=== PATIENT | male | born 1960 | race Caucasian/White ===

== ENCOUNTER 2025-01-10 16:23 | Emergency (ER) | payer MEDICARE, BC, SELFPAY ==
--- OUTSIDE RECORDS SUMMARY | 2024-12-23 13:00 | XMS_ITS | Encounter Summary ---
Author Organization [facility] Address [address], [place] [address] Care Team Providers Care Broadcast Operations Engineer Name Role Phone Carly Connelly MD Primary Care Provider [phone] Reason for Visit * Reason Comments Follow-up Symptoms Orthostatic drop wit h lightheadedness--wondering when to take meds for itPhlegm-- suggested Mucinex Encounter Details Date Type Department Care Team (Late st Contact Info) Description 12/23/2024 1:00 PM KILN WORKER Office Visit [facility] [address] [place] [id number] Teofilo Ackerman MD [address] [facility] [address] [place] [address] Parkinson's disease, unspecified whether dyskinesia present, unspecified whether manifestations fluctuate (HRC) (Primary Dx); Orthostatic hypotension Social History Tobacco Use Types Packs/Day Years Used Date Smoking Tobacco: Never Alcohol Use Standard Drinks/Week Comments Yes 0 (1 standard drink = 0.6 oz pur e alcohol) Sex and Gender Information Value Date Recorded Sex Assigned at Not on file Legal Sex Male 4:28 AM CDT Gender Identity Not on file Sexual Orientation Not on file documented as of this encounter Last Filed Vital Signs Vital Sign Reading Time Taken Comments Blood Pressure 103/63 12/23/2024 1:05 PM KILN WORKER Pulse 73 12/23/2024 1:05 PM KILN WORKER Temperature - - Respiratory Rate - - Oxygen Saturation - - Inhaled Oxygen Concentration - - Weight 94.8 kg (209 lb) 12/23/2024 1:02 PM KILN WORKER s hoes on Height - - Body Mass Index - - documented in this encounter Patient Instructions * Patient Instructions* Teofilo Ackerman MD - 12/23/2024 1:00 PM KILN WORKER Please contact us using [employer] or by calling the [facility] [place] nurse line at [phone]. Two easy ways to stay connected with what is going on at [facility]: If you have not already done so, we encourage you to sign up (for free) to be on our e-mailing list, so that you will receive information about upcoming classes, events, and activities hosted by [facility]! To sign up, simply send an email to [email or web address] indicating that you would like to be included. 2. [place] for upcoming events, exercise classes, and support groups by visiting [email or web address] or click the link below: [facility] [place] Events - 20 Upcoming Activities and Tickets [employer] Learn more about our ongoing [facility] studies here! [email or web address] Continue same dose and schedule of carbidopa levodopa. Continue to emphasize fluid intake and salt to keep blood pressure higher. Let me know if lightheadedness is getting noticeably worse, it may improve if you are able to stop tamsulosin. Your exam looks very stable today. Follow up with me in six months. Teofilo Ackerman MD WORKER WORKER documented in this encounter Progress Notes * Teofilo Ackerman MD - 12/23/2024 1:00 PM CST Chief complaint: Follow-up History of present illness: 64-year-old man here for neurologic follow-up. Since his last visit with me, he has occasional lightheadedness. He has documented orthostatic hypotension. He remains on tamsulosin but is undergoing a procedure coming up which might allow him to start that medication. He tries to stay well hydrated, also uses salt as needed. Other than that he has not noticed significant changes in regard to the motor symptoms of his Parkinson's disease. He denies motor fluctuations related to the timing of carbidopa levodopa which he takes two pills 3 times per day. He does not have dyskinesia. He has occasional increase in phlegm. Mildly low voice volume. He denies significant constipation. No cognitive difficulties. No swallowing problems. No significant depression or anxiety. Physical exam: Vital signs: Blood pressure 130/70 seated and 103/63 standing. Pulse 57 seated and 73 standing. Weight 209 lb. Neurologic exam was remarkable for mild and intermittent rest tremor of the left hand, minimal to mild bradykinesia left greater than right in the upper and lower extremities. No dyskinesia. Gait exam was remarkable for excellent arm swing, stride length, posture, with mild rest tremor of the left hand. Impression: 64-year-old man with Parkinson's disease well-controlled on carbidopa levodopa. Exam looks stable from previous. He does have continued orthostasis, hopefully this will improve somewhat if he is able to stop tamsulosin. If not and he develops more significant lightheadedness we could con metal hardener pharmacologic therapy such as midodrine or fludrocortisone. He will continue emphasis on physical activity and follow up with me in six months. He will let me know if he would like to combine an upcoming visit with me with speech therapy or any of the other rehab therapists here. He and his will be spending three months this winter in [place]. A total of 33 minutes were spent on the visit, between the visit itself, chart review, documentation. Teofilo Ackerman MD WORKER documented in this encounter Plan of Treatment Upcoming Encounters Date Type Department Care Team (Late st Contact Info) Description 01/13/2025 2:00 PM KILN WORKER Appointment [facility] [address] [place] [id number] Maria Isabel Lerma, FLY FRAME TENDER [address] [place], [place] [phone] 06/27/2025 9:50 AM CDT Appointment Neurology at [place] [id number] [facility] [address] [place] [phone] Teofilo Ackerman MD [address] [facility] [address] [facility] [place] [phone] documented as of this encounter Visit Diagnoses Diagnosis Parkinson's disease, unspecified whether dyskinesia present, unspecified whether manifestations fluctuate (HRC)- Primary Orthostatic hypotension documented in this encounter Care Teams Broadcast Operations Engineer Relationship Specialty Start Date End Date Carly Connelly MD [address] [facility] [address] [place] [phone] PCP - General 05/24/10 documented as of this encounter
--- OUTSIDE RECORDS SUMMARY | 2025-01-10 16:26 | XMS_ITS | Clinical Summary ---
Author Organization [facility] Address [address] [place] [address] Care Team Providers Care Hosiery Mender Name Role Phone No Ref-Primary, Physician Primary Care Provider Social History Tobacco Use Types Packs/Day Years Used Date Smoking Tobacco: Never Assessed Adolescent Education Answer Date Record ed Getting School Help Needed Not on file 11/12 Sex and Gender Information Value Date Recorded Sex Assigned at Not on file Legal Sex Male 2:39 PM CDT Gender Identity Not on file Sexual Orientation Not on file Last Filed Vital Signs Vital Sign Reading Time Taken Comments Blood Pressure 124/74 09/26/2022 10:02 AM CDT Pulse 55 09/26/2022 10:02 AM CDT Temperature - - Respiratory Rate - - Oxygen Saturation 98% 09/26/2022 10:02 AM CDT Inhaled Oxygen Concentration - - Weight - - Height - - Body Mass Index - - Plan of Treatment Health Maintenance Due Date Last Done Comments ADVANCE CARE PLANNING 1960 ANNUAL REVIEW OF HM ORDERS 1958 CT COLONOGRAPHY 1958 DIABETES SCREENING 1958 FIT 1958 FLEX SIG 1958 sDNA (Cologuard) 1958 COLONOSCOPY 1968 COLORECTAL CANCER SCREENING 1968 HEPATITIS C SCREENING 1976 LIPID 1998 PNEUMOCOCCAL VACCINE 50+ YEARS (1 of 1 - PCV) 2008 DTAP/TDAP/TD VACCINE (1 - Tdap) 01/02/2016 01/01/2016, 01/12/2005 FALL RISK ASSESSMENT 05/08/2023 MEDICARE ANNUAL WELLNESS VISIT 08/16/2023 08/15/2022, 06/09/2021 PHQ-2 (once per calendar year) 2024 COVID-19 VACCINE ( season) 2024 10/28/2021, 07/07/2021, 12/16/2020, Additional history exists INFLUENZA VACCINE (#1) 2024 , 11/21/2020, 10/25/2019, Additional history exists RSV VACCINE (1 - 1-dose 75+ series) 2033 ZOSTER VACCINE Completed 07/31/2019, 03/26/2019 HPV VACCINE (No Doses Required) Completed MENINGITIS VACCINE Aged Out No longer eligible based on patient's age to complete this topic Insurance [employer] Care Teams Hosiery Mender Relationship Specialty Start Date End Date No Ref-Primary, Physician PCP - General 09/26/22
--- OUTSIDE RECORDS SUMMARY | 2025-01-10 16:26 | XMS_ITS | Continuity of Care Document ---
Author Organization 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 Plan of Treatment Reminders Order Date Submit Date Provider Last Modified By Organization Details Last Modified Time Details Appointments HOSPITAL 30 2024 08:30A Aidan Vigil MD Not available Not available Not available POST OP 15 2024 09:30A Aidan Vigil MD Not available Not available Not available Lab urinalysi s, dipstick 2024 025 [facility], [address], [place], [address], 01/01/2025 11:00:18 urinalysi s, microscop ic [address] [facility], [address] [facility], [address], [place], [address], 01/01/2025 10:51:22 culture, urine 2024 025 [facility] [place] [facility], [address] [facility], [place], [address], 01/03/2025 11:50:37 Referral None recorded. Procedures None recorded. Surgeries None recorded. Imaging None recorded. Medication Orders None recorded. Patient TargetsNo targets recorded. Patient InstructionsNo instructions recorded. Reason for Referral None Reported. Results Created Date Observation Date Name Description Value Unit Range Abnormal Flag Note LastModifiedBy Organization Detail LastModifiedTime 01/02/2001/01/2025 UA WITHO UT MICRO - CS URISC AN blood - uriscan NEGATI VE negati ve Not Available [facility] [address] [facility] [address], [place], [address], 01/01/2025 11:00:18 01/02/20 25 01/01/2025 UA WITHO UT MICRO - CS URISC AN bilirubin - uriscan NEGATI VE mg/dL negati ve Not Available [facility] [address] [place] [address] 200, [place], [address], 01/01/2025 11:00:18 01/02/2001/01/2025 UA WITHO UT MICRO - CS URISC AN urobilinogen - uriscan NORMAL mg/dL normal Not Available [facility] [address] [place] [address] 200, [place], [address], 01/01/2025 11:00:18 01/02/2001/01/2025 UA WITHO UT MICRO - CS URISC AN ketones - uriscan NEGATI VE mg/dL negati ve Not Available [facility] [address] [place] [address] 200, [place], [address], 01/01/2025 11:00:18 01/02/20 25 01/01/2025 UA WITHO UT MICRO - CS URISC AN protein - uriscan NEGATI VE mg/dL negati ve Not Available [facility] [address] [place] [address] 200, [place], [address], 01/01/2025 11:00:18 01/02/2001/01/2025 UA WITHO UT MICRO - CS URISC AN nitrites - uriscan NEGATI VE negati ve Not Available [facility] [address] [place] [address] [address], [place], [address], 01/01/2025 11:00:18 01/02/20 25 01/01/2025 UA WITHO UT MICRO - CS URISC AN glucose - uriscan NEGATI VE mg/dL negati ve Not Available [facility] [address] [place] [address] 200, [place], [address], 01/01/2025 11:00:18 01/02/2001/01/2025 UA WITHO UT MICRO - CS URISC AN pH - uriscan 7.00 5.00-9 .00 Not Available [facility] [address] [place] [address] 200, [place], [address], 01/01/2025 11:00:18 01/02/2001/01/2025 UA WITHO UT MICRO - CS URISC AN sp. gravity - uriscan <=1.01 1.01-1 .03 Not Available [facility] [address] [place] [address] [address], [place], [address], 01/01/2025 11:00:18 01/02/2001/01/2025 UA WITHO UT MICRO - CS URISC AN leukocytes - uriscan NEGATI VE negati ve Not Available [facility] [address] [place] [address] 200, [place], [address], 01/01/2025 11:00:18 01/02/2001/01/2025 UA WITHO UT MICRO - CS URISC AN color - uriscan LT. YELLOW lt. yellow ;yello w Not Available [facility] [address] [place] [address] 200, [place], [address], 01/01/2025 11:00:18 01/02/2001/01/2025 UA WITHO UT MICRO - CS URISC AN clarity - uriscan CLEAR clear Not Available [facility] [address] [place] [address] 200, [place], [address], 01/01/2025 11:00:18 01/02/2001/01/2025 UA WITHO UT MICRO - CS URISC AN total urine volume (mL) 80 /mL ----- ----- ----- ----- ----- ----- ----- ----- ----- ----- ----- ----- ----- ----- ---- *Plewayne morrow note the follo wing minim um quant ities for addit ional urine testi ng: - Atypi cals: 3 mL - Cytol ogy: 20 mL - GC/CH : 2 mL - FISH: 30 mL - Atypi cals w/ GC/CH : 5 mL - Cytol ogy PLUS FISH: 50 mL - Urine Cultu re: 3 mL ----- ----- ----- ----- ----- ----- ----- ----- ----- ----- ----- ----- ----- ----- ---- This lab resul t is being provi ded to you and your provi ricardo at the [facility] Act. Your provi ricardo may not have had time to revie w and make recom menda tions based on the resul t. Plegabriela e allow up to one week for provi ricardo revie w. Not Available [facility] [address] [facility] [address], [place], [address], 01/01/2025 11:00:18 01/02/20 25 01/01/2025 URINE CULTU RE final report MICROB IOLOGY RESULT S SOURC E Void KNOWN ALLER GIVLADIMIR NKDA TREAT MENT none MEDIA PLATE D AT: Media plate d on 01/01 @ 11:01 AM RESUL T No Growt h This lab resul t is being provi ded to you and your provi ricardo at the [facility] with [facility] Cures Act. Your provi ricardo may not have had time to revie w and make recom menda tions based on the resul t. Pleas e allow up to one week for provi ricardo revie w. Not Available [facility] [address], [place], [address], 01/03/2025 11:50:37 Result Notes None recorded. Problems Name Problem SNOMED Code Status Onset Date Resolution Date Notes Provider Name and Address Organization Details Recorded Time Ureteric stone 74429252 Active 2021 Mark Lewis MD [address] [place] [address],[address], [place], [address], [facility] 2 11:55:18 Parkinson's disease 12143517 Active 2023 Sheri Bingham [facility] 5 13:39:13 Lower urinary tract symptoms due to benign prostatic hypertrophy 2006101308527 1 Active 2024 Mat Vigil MD [address] [place] [address],[address], [place], [address], [facility] 5 14:42:55 Increased frequency of urination 686710447 Active 2024 Mat Vigil MD [address] [place] [address],[address], [place], [address], [facility] 5 14:42:57 Microscopic hematuria 987926710 Active 2024 Mat Vigil MD [address] [place] [address],[address], [place], [address], [facility] 5 14:43:03 Kidney stone 77124543 Active 2024 Mat Vigil MD [address] [place] [address],[address], [place], [address], [facility] 5 16:18:39 Benign prostatic hyperplasia 668626042 Active 2024 Mat Vigil MD [address] [place] [address],[address], [place], [address], [facility] 5 12:57:27 Problem Notes None recorded. Procedures Surgical History Date Name Laterality Status Provider Name and Address Organization Details Recorded Time 01/02/20 25 Urine Culture completed Charo Edmond [facility] 12/30/2024 14:27:17 01/02/20 25 Urinalysis completed Nasrin Xiong [facility] 01/01/2025 10:50:08 12/10/19 25 Cystoscopy- male completed Mat Vigil MD [address] [facility],[address], [place], [address], [facility] 12/09/2024 16:16:59 02/20/19 21 Diagnostic colonoscopy completed Not Available Health Note 11/28/2024 21:31:42 Fragmenting of kidney stone completed Not Available Health Note 11/28/2024 21:31:42 Imaging Results None recorded. Procedure Notes None recorded. Medical Equipment None Reported. Allergies No known drug allergies Medications Name Sig Start Date Stop Date Status Note LastModified by Organization Details LastModified Time carbidopa ER 25 mg-levodo pa 100 mg tablet,ex tended release 25mg/100 mg 3/day active Not Available Not Available No t Available sulfameth oxazole 800 mg-trimet hoprim 160 mg tablet TAKE ONE TABLET BY MOUTH FOR PROCEDUR E 12/09 completed Not Available Not Available Not Available ketorolac 10 mg tablet TAKE ONE TABLET BY MOUTH EVERY 6-8 HOURS NEEDED FOR 7 DAYS. active Not Available Not Available No t Available oxycodone -acetamin ophen 5 mg-325 mg tablet TAKE ONE TABLET BY MOUTH EVERY 4 HOURS NEEDED 12/02 completed HN: Patient reports no longer taking Not Available Not Available Not Available tamsulosi n 0.4 mg capsule TAKE ONE CAPSULE BY MOUTH EVERY DAY AFTER A MEAL active Not Available Not Available No t Available ibuprofen 200 mg tablet Take 1 tablet every 6 hours by oral route. 12/02 completed HN: Patient reports no longer taking Not Available Not Available Not Available oxybutyni n chloride ER 5 mg tablet,ex tended release 24 hr TAKE ONE TABLET BY MOUTH EVERY DAY NEEDED FOR 30 DAYS. active Not Available Not Available No t Available methylpre dnisolone 4 mg tablets in a dose pack TAKE BY MOUTH DIRECTED ON PACKAGE. active Not Available Not Available No t Available colchicin e 0.6 mg tablet TAKE ONE TABLET BY MOUTH TWICE A DAY NEEDED FOR GOUT PAIN active Not Available Not Available No t Available pregabali n 25 mg capsule TAKE ONE CAPSULE BY MOUTH AT BEDTIME active Not Available Not Available No t Available Vitals None Recorded Social History Question Answer Notes LastModified by Clariture ion Details LastModified Time Tobacco Smoking Status Former Smoker Not Available Health Note 11/28/2024 21:31:42 Do You Have An Advance Directive? No [email or web address] Information not available 11/28/2024 What Is Your Level Of Caffeine Consumption? Moderate [email or web address] Information not available 11/28/2024 How Much Tobacco Do You Chew? 1/day [email or web address] Information not available 11/28/2024 When Did You Quit Smoking? 16+yearssince lastcigarette [email or web address] Information not available 12/02/2024 Ethnicity Not /Lati no [email or web address] Information not available 12/02/2024 Preferred Language Kiswahili [email or web address] Information not available 12/02/2024 Recreational Drug Use No [email or web address] Information not available 12/02/2024 Do You Have A Medical Power Of Electrotype Caster? Yes [email or web address] Information not available 11/28/2024 What Was The Date Of Your Most Recent Tobacco Screening? 12/09/2024 [email or web address] Information not available 12/05/2024 What Is Your Relationship Status? [email or web address] Information not available 11/28/2024 Are You Sexually Active? Yes [email or web address] Information not available 11/28/2024 How Many Years Have You Smoked Tobacco? 3 [email or web address] Information not available 11/28/2024 How Many Days In The Past Year Have You Consumed 5 Or More Drinks? 5 [email or web address] Information no t available 11/28/2024 Sex: Unknown Functional Status Question Answer Note LastModified by [employer] ion Details LastModified Time Do you use any illicit or recreational drugs? Yes [email or web address] Information not available 11/28/2024 Do you or have you ever used any other forms of tobacco or nicotine? No [email or web address] Information not available 03/11/2021 What is your level of alcohol consumption? Occasional [email or web address] Information not available 11/28/2024 Do you or have you ever used smokeless tobacco? Never used smokeless tobacco [email or web address] Information not available 11/28/2024 Do you or have you ever used e-cigarettes or vape? Never used electronic cigarettes [email or web address] Information not available 11/28/2024 Mental Status None recorded. Family History Nothing Reported. Medical History Condition Response Sexually Transmitted Infection N Diabetes N Bleeding Disorder N High Blood Pressure N Kidney Stones Y Cancer N Depression N Lung Disease N High Cholesterol Y GERD/Acid Reflux N Heart Disease N Immunizations Vaccine Type Date Status Note Provider Nam e and Address Organization Details Recorded Time SARS-COV-2 (COVID-19) vaccine, UNSPECIFIED 3 completed Not Available Health Note 11/28/2024 21:31:44 zoster live 0 completed Not Available Health Note 11/28/2024 21:31:44 influenza, unspecified formulation 3 completed Not Available Health Note 11/28/2024 21:31:44 Influenza, split virus, trivalent, preservative 6 completed Not Available [facility] 01/01/2025 11:19:38 Hep A, ped/adol, 2 dose 8 completed Not Available [facility] 01/01/2025 11:19:38 Hep B, adult 8 completed Not Available [facility] 01/01/2025 11:19:38 Td (adult), 2 Lf tetanus toxoid, preservative free, adsorbed 5 completed Not Available [facility] 01/01/2025 11:19:38 Hep A, adult 8 completed Not Available [facility] 01/01/2025 11:19:38 Hep B, adult 8 completed Not Available [facility] 01/01/2025 11:19:38 Hep B, adult 8 completed Not Available [facility] 01/01/2025 11:19:38 Influenza, split virus, trivalent, preservative 8 completed Not Available [facility] 01/01/2025 11:19:38 Influenza, split virus, trivalent, preservative 9 completed Not Available [facility] 01/01/2025 11:19:38 influenza, unspecified formulation 0 completed Not Available [facility] 01/01/2025 11:19:38 Influenza, split virus, trivalent, preservative 1 completed Not Available [facility] 01/01/2025 11:19:38 Influenza, split virus, trivalent, preservative 2 completed Not Available [facility] 01/01/2025 11:19:38 Influenza, split virus, trivalent, preservative 2 completed Not Available [facility] 01/01/2025 11:19:38 measles 7 completed Not Available [facility] 01/01/2025 11:19:38 Influenza, split virus, trivalent, preservative 3 completed Not Available [facility] 01/01/2025 11:19:38 influenza, unspecified formulation 4 completed Not Available [facility] 01/01/2025 11:19:38 Influenza, split virus, quadrivalent, PF 6 completed Not Available [facility] 01/01/2025 11:19:38 Td (adult), 2 Lf tetanus toxoid, preservative free, adsorbed 6 completed Not Available [facility] 01/01/2025 11:19:38 Influenza, MDCK, quadrivalent, PF 7 completed Not Available [facility] 01/01/2025 11:19:38 Influenza, split virus, quadrivalent, PF 8 completed Not Available [facility] 01/01/2025 11:19:38 Influenza, split virus, quadrivalent, PF 9 completed Not Available [facility] 01/01/2025 11:19:38 zoster recombinant 0 completed Not Available [facility] 01/01/2025 11:19:38 zoster recombinant 0 completed Not Available [facility] 01/01/2025 11:19:38 Influenza, split virus, quadrivalent, PF 0 completed Not Available [facility] 01/01/2025 11:19:38 COVID-19, mRNA, LNP-S, PF, 30 mcg/0.3 mL dose 1 completed Not Available [facility] 01/[facility] 11:19:38 COVID-19, mRNA, LNP-S, PF, 30 mcg/0.3 mL dose 1 completed Not Available [facility] 01/01/2025 11:19:38 Influenza, split virus, quadrivalent, PF 1 completed Not Available [facility] 01/01/2025 11:19:38 COVID-19, mRNA, LNP-S, PF, 30 mcg/0.3 mL dose 1 completed Not Available [facility] 01/01/2025 11:19:38 COVID-19, mRNA, LNP-S, PF, 100 mcg/0.5mL dose or 50 mcg/0.25mL dose 2 completed Not Available [facility] 01/01/2025 11:19:38 COVID-19, mRNA, LNP-S, bivalent, PF, 30 mcg/0.3 mL dose 2 completed Not Available [facility] 01/01/2025 11:19:38 Influenza, MDCK, quadrivalent, PF 2 completed Not Available [facility] 01/01/2025 11:19:38 Influenza, split virus, quadrivalent, PF 3 completed Not Available [facility] 01/01/2025 11:19:38 COVID-19, mRNA, LNP-S, PF, vick-sucrose, 30 mcg/0.3 mL 4 completed Not Available [facility] 01/01/2025 11:19:38 Pneumococcal conjugate PCV20, polysaccharide [id number] conjugate, adjuvant, PF 4 completed Not Available [facility] 01/01/2025 11:19:38 COVID-19, mRNA, LNP-S, PF, vick-sucrose, 30 mcg/0.3 mL 4 completed Not Available [facility] 01/01/2025 11:19:38 Influenza, adjuvanted, trivalent, PF 4 completed Not Available [facility] 01/01/2025 11:19:38 Influenza, adjuvanted, trivalent, PF 5 completed Not Available [facility] 01/01/2025 11:19:38 COVID-19, mRNA, LNP-S, PF, 50 mcg/0.5 mL 5 completed Not Available [facility] 01/01/2025 11:19:38 Past Encounters Encounter ID Performer Location Encounter Start Date Encounter Closed Date Diagnosis/Indication Diagnosis SNOMED-CT Code Diagnosis ICD10 Code Diagnosis IMO Codes Diagnosis Note [id number] MD Xiomy Pate an [address] [facility],[address] [place] [id number] 12/02/2024 13:56:34 12/02/2024 14:48:25 Lower urinary tract symptoms due to benign prostatic hypertrophy 9391438185 9101 N40.1 79079267 - bothered by his frequency and urgency q1h- likely related to chronic BPH +/ - constipati on- on flomax, tolerating w/o s/e- offered finasterid e, not interested - will eval his bladder and prostate on cysto, may be good urolift candidate- advised to minimize constipati on Microscopic hematuria 19 7578242 R31.29 623323 We discussed the current guidelines as outlined by the [place] regarding the evaluation of patients at risk for urothelial cell carcinoma. Given they are high risk, it is recommende d that they proceed with local cystoscopy and contrast enhanced triphasic upper tract imaging.-R TC for cysto Kidney stone 13227154 N2 0.0 15512 - ~1.1cm of left side non obstructin g stones- plan for surveillan ce- check KUB + US in 12mo [id number] MD Xiomy Pate an [address] [facility],[address] [place] [id number] 12/09/2024 14:50:16 12/09/2024 16:23:05 Lower urinary tract symptoms due to benign prostatic hypertrophy 1938320006 9101 N40.1 [id number] - cysto today with bilateral obstructin g lobes, no intravesic al componentI had a long discussion with the patient regarding his symptom severity and his findings from both his imaging and cystoscopy . We first discussed medical therapy with alpha-bloc fransico with or without the addition of finasterid e 5 mg daily. We discussed expectatio ns in terms of symptom improvemen t with combinatio n medical therapy. We then discussed minimally invasive procedures done in the office under local anesthesia or monitored anesthesia care in the operating room, notably the Rezum, Urolift, iTind, and Optilume for BPH.We discussed the technical aspects of each of these procedures , risks, anticipate d improvemen ts in voiding dysfunctio n, and the very low risk of impacts on sexual function. We then touched on the role of prostate artery embolizati on. We discussed the technical aspects of this, existing outcomes data, and risks. We discussed that if he is interested in this I would referred [facility] for considerat ion and he would return after treatment for reassessme nt. We then discussed surgical outlet procedures done under anesthesia including bi-polar transureth ral resection of prostate, aqua ablation, robotic assisted and open simple prostatect petra. We then discussed the associated risks of each procedures , anticipate d symptom improvemen t, surgical retreatmen t rate, and impacts on sexual function. hes a good candidate for urolift. will scheduleI also had long discussion of role his parkinsons may be playing. i think he needs outlet procedure but likely ongoing therapy for OAB / NDO. with urolift less concern with botox in the future Microscopic hematuria 19 7490589 R31.29 410050 -CTU showing few small stones, will survel-cys to negative for bladder cause Kidney stone 89012862 N2 0.0 45090 - ~1.1cm of left side non obstructin g stones- plan for surveillan ce- check KUB + US in 12mo [id number] Mat Vigil MD [facility] [address] [facility] [address] [place] [address] 01/01/2025 10:21:39 01/01/2025 10:53:22 Lower urinary tract symptoms due to benign prostatic hypertrophy 6858455564 9101 N40.1 86510181 Health Concerns Section Related Observation LastModified by Organization Detai ls LastModified Time None Recorded Concern Status LastModified by Organization Details LastModified Time None Recorded Payers Encounter Date Sequence Insurance Name Policy Number Policy Ivy Covered Member ID Ivy Member ID Guarantor Name 01/01/2025 1 [employer] [employer] [place] MEDICARE COST [id number] Mat Ureña [id number] Mat Ureña
--- OUTSIDE RECORDS SUMMARY | 2025-01-10 16:26 | XMS_ITS | Data Portability ---
Author Organization [facility], [facility] Address [address] [place] [address] Care Team Providers Care Gymnastics Coach Or Instructor Name Role Phone ELSY NORWOOD Primary Care Provider [phone] Assessment Encounter Date Assessment Date Assessment LastModified by Organization Details LastModified Time 12/02/2024 12/02/2024 64yo m here for evaluation of multiple urologic issues [email or web address] Not available 12/02/2024 14:42:52 12/09/2024 12/09/2024 64yo m with luts , microhematuria [email or web address] Not available 12/09/2024 16:18:49 Plan of Treatment Reminders Order Date Submit Date Provider Last Modified By Organization Details Last Modified Time Details Appointments HOSPITAL 30 2024 08:30A M Sapna Vigil MD Not available Not available Not available POST OP 15 2024 09:30A M Sapna Vigil MD Not available Not available Not available Lab urinalysi s, dipstick 2024 025 [facility], [address], [address], [place], [address], 01/01/2025 11:00:18 urinalysi s, microscop ic 2024 025 [facility], [address], [address], [place], [address], 01/01/2025 10:51:22 culture, urine 2024 025 [facility], [address], [address], [place], [address], 01/03/2025 11:50:37 Referral None recorded. Procedures None recorded. Surgeries cystouret hroscopy, with insertion of permanent adjustabl e transpros tatic implant; single implant (SURG) 2024 025 [email or web address] [id number] [facility], [address], [address], [place], [address], 12/20/2024 09:58:13 cystoscop y, with ureterosc opy, with lithotrip sy, with insertion of ureteral stent (SURG) 2021 022 [email or web address] [id number] [facility], [address], [address], [place], [address], 03/29/2021 15:42:32 Imaging None recorded. Medication Orders Bactrim DS 800 mg-160 mg tablet 2024 025 [facility], [place], [place], [address] [place], [address], 01/08/2025 12:55:43 Patient TargetsNo targets recorded. Patient InstructionsNo instructions recorded. Reason for Referral None Reported. Results Created Date Observation Date Name Description Value Unit Range Abnormal Flag Note LastModifiedBy Organization Detail LastModifiedTime 03/16/19 22 03/19/2021 STONE SWETHA SIS source Commen t Right Urete r Not Available [facility] ([facility]) [address], [place], [address], 03/19/2021 19:07:45 03/16/19 22 03/19/2021 STONE SWETHA SIS color Brown Not Available [facility] ([facility]) [address], [place], [address], 03/19/2021 19:07:45 03/16/19 22 03/19/2021 STONE SWETHA SIS size 2x2 mm Singl e piece recei julian. Not Available [facility] ([facility]) [address] [place], [address], 03/19/2021 19:07:45 03/16/19 22 03/19/2021 STONE SWETHA SIS weight 15 mg Not Available [facility] ([facility]) [address] [place], [address], 03/19/2021 19:07:45 03/16/19 22 03/19/2021 STONE SWETHA SIS composition Commen t Perce ntage (Repr esent s the % compo sitio n) Not Available [facility] ([facility]) [address] [place], [address], 03/19/2021 19:07:45 03/16/19 22 03/19/2021 STONE SWETHA SIS calcium oxalate monohydrate 65 % Not Available [facility]) [address] [place], [address], 03/19/2021 19:07:45 03/16/19 22 03/19/2021 STONE SWETHA SIS calcium oxalate dihydrate 30 % Not Available [facility] ([facility]) [address] [place], [address], 03/19/2021 19:07:45 03/16/19 22 03/19/2021 STONE SWETHA SIS hydroxyapati te 5 % Not Available [facility] ([facility]) [address] [place], [address], 03/19/2021 19:07:45 03/16/19 22 03/19/2021 STONE SWETHA SIS carbonate apatite EDUCATION AND OUTREACH COORDINATOR Not Available [facility] ([facility]) [address] [place], [address], 03/19/2021 19:07:45 03/16/19 22 03/19/2021 STONE SWETHA SIS cahpo4 (brushite) EDUCATION AND OUTREACH COORDINATOR Not Available [facility]) [address], [place], [address], 03/19/2021 19:07:45 03/16/19 22 03/19/2021 STONE SWETHA SIS calcium phosphate EDUCATION AND OUTREACH COORDINATOR Not Available [facility] ([facility]) [address], [place], [address], 03/19/2021 19:07:45 03/16/19 22 03/19/2021 STONE SWETHA SIS calcium carbonate EDUCATION AND OUTREACH COORDINATOR Not Available [facility] ([facility]) [address], [place], [address], 03/19/2021 19:07:45 03/16/19 22 03/19/2021 STONE SWETHA SIS mg nh4 PO4 (struvite) EDUCATION AND OUTREACH COORDINATOR Not Available [facility]) [address] [place], [address], 03/19/2021 19:07:45 03/16/19 22 03/19/2021 STONE SWETHA SIS mghpo4 (newberyite) EDUCATION AND OUTREACH COORDINATOR Not Available [facility] ([facility]) [address] [place], [address], 03/19/2021 19:07:45 03/16/19 22 03/19/2021 STONE SWETHA SIS uric acid EDUCATION AND OUTREACH COORDINATOR Not Available [facility] ([facility]) [address] [place], [address], 03/19/2021 19:07:45 03/16/19 22 03/19/2021 STONE SWETHA SIS uric acid dihydrate EDUCATION AND OUTREACH COORDINATOR Not Available [facility] ([facility]) [address] [place], [address], 03/19/2021 19:07:45 03/16/19 22 03/19/2021 STONE SWETHA SIS ammonium acid urate EDUCATION AND OUTREACH COORDINATOR Not Available [facility]) [address] [place], [address], 03/19/2021 19:07:45 03/16/19 22 03/19/2021 STONE SWETHA SIS sodium acid urate EDUCATION AND OUTREACH COORDINATOR Not Available [facility] ([facility]) [address] [place], [address], 03/19/2021 19:07:45 03/16/19 22 03/19/2021 STONE SWETHA SIS 2,8 dihydroxyade nine EDUCATION AND OUTREACH COORDINATOR Not Available [facility] ([facility]) [address] [place], [address], 03/19/2021 19:07:45 03/16/19 22 03/19/2021 STONE SWETHA SIS xanthine EDUCATION AND OUTREACH COORDINATOR Not Available [facility] ([facility]) [address] [place], [address], 03/19/2021 19:07:45 03/16/19 22 03/19/2021 STONE SWETHA SIS cystine EDUCATION AND OUTREACH COORDINATOR Not Available [facility] ([facility]) [address] [place], [address], 03/19/2021 19:07:45 03/16/19 22 03/19/2021 STONE SWETHA SIS cholesterol EDUCATION AND OUTREACH COORDINATOR Not Available [facility] ([facility]) [address] [place], [address], 03/19/2021 19:07:45 03/16/19 22 03/19/2021 STONE SWETHA SIS calcium bilirubinate EDUCATION AND OUTREACH COORDINATOR Not Available [facility] ([facility]) [address] [place], [address], 03/19/2021 19:07:45 03/16/19 22 03/19/2021 STONE SWETHA SIS bilirubin EDUCATION AND OUTREACH COORDINATOR Not Available [facility] ([facility]) [address] [place], [address], 03/19/2021 19:07:45 03/16/19 22 03/19/2021 STONE SWETHA SIS calcium palmitate EDUCATION AND OUTREACH COORDINATOR Not Available [facility] ([facility]) [address] [place], [address], 03/19/2021 19:07:45 03/16/19 22 03/19/2021 STONE SWETHA SIS calcium stearate EDUCATION AND OUTREACH COORDINATOR Not Available [facility] ([facility]) [address], [place], [address], 03/19/2021 19:07:45 03/16/19 22 03/19/2021 STONE SWETHA SIS triamterene EDUCATION AND OUTREACH COORDINATOR Not Available [facility] ([facility]) [address], [place], [address], 03/19/2021 19:07:45 03/16/19 22 03/19/2021 STONE SWETHA SIS drug or metabolite EDUCATION AND OUTREACH COORDINATOR Not Available [facility] ([facility]) [address], [place], [address], 03/19/2021 19:07:45 03/16/19 22 03/19/2021 STONE SWETHA SIS dried blood EDUCATION AND OUTREACH COORDINATOR Not Available [facility] ([facility]) [address], [place], [address], 03/19/2021 19:07:45 03/16/19 22 03/19/2021 STONE SWETHA SIS cellular material EDUCATION AND OUTREACH COORDINATOR Not Available [facility] ([facility]) [address], [place], [address], 03/19/2021 19:07:45 03/16/19 22 03/19/2021 STONE SWETHA SIS other component(s) EDUCATION AND OUTREACH COORDINATOR Not Available [facility] ([facility]) [address], [place], [address], 03/19/2021 19:07:45 03/16/19 22 03/19/2021 STONE SWETHA SIS comment EDUCATION AND OUTREACH COORDINATOR Not Available [facility] ([facility]) [address] [place], [address], 03/19/2021 19:07:45 03/16/19 22 03/19/2021 STONE SWETHA SIS comment EDUCATION AND OUTREACH COORDINATOR Not Available [facility] ([facility]) [address], [place], [address], 03/19/2021 19:07:45 03/16/19 22 03/19/2021 STONE SWETHA SIS photo Commcarlos t Photo graph will follo w under a separ ate cover Not Available [facility] ([facility]) [address], [place], [address], 03/19/2021 19:07:45 03/16/19 22 03/19/2021 STONE SWETHA SIS comment: Commen t Physi yana quest ions regar ding Calcu li Swetha sis conta ct [facility] at: [phone]. Not Available [facility] ([facility]) [address], [place], [address], 03/19/2021 19:07:45 03/16/19 22 03/19/2021 STONE SWETHA SIS please note: Yonathan t Calcu li repor t will follo w via compu ter, mail or couri kitty fitzpatrick. Not Available [facility] ([facility]) [address], [place], [address], 03/19/2021 19:07:45 03/16/19 22 03/19/2021 STONE SWETHA SIS disclaimer: Yonathan patel This test was devel oped and its perfo rmanc e shantelle cteri stics deter mined by [employer]. It has not been clear ed or appro julian by the Food and Drug Admin istra tion. Not Available [facility] ([facility]) [address], [place], [address], 03/19/2021 19:07:45 03/16/1903/19/2021 STONE SWETHA SIS pdf . Not Available [facility] ([facility]) [address], [place], [address], 03/19/2021 19:07:45 03/16/19 22 03/16/2021 STONE SWETHA SIS-L C source Commen t Right Urete r Not Available [facility] [address] [place] [address], [place], [address], 03/22/2021 08:09:09 03/16/19 22 03/16/2021 STONE SWETHA SIS-L C color Brown Not Available [facility] [address] [place] [address], [place], [address], 03/22/2021 08:09:09 03/16/19 22 03/16/2021 STONE SWETHA SIS-L C size 2x2 mm Singl e piece recei julian. Not Available [facility] [address] [place] [address], [place], [address], 03/22/2021 08:09:09 03/16/19 22 03/16/2021 STONE SWETHA SIS-L C weight 15 mg Not Available [facility] [address] [place] [address], [place], [address], 03/22/2021 08:09:09 03/16/19 22 03/16/2021 STONE SWETHA SIS-L C composition Commen t Perce ntage (Repr esent s the % compo sitio n) Not Available [facility] [address] [place] [address], [place], [address], 03/22/2021 08:09:09 03/16/19 22 03/16/2021 STONE SWETHA SIS-L C calcium oxalate monohydrate 65 % Not Available [facility] [address] [place] [address], [place], [address], 03/22/2021 08:09:09 03/16/19 22 03/16/2021 STONE SWETHA SIS-L C calcium oxalate dihydrate 30 % Not Available [facility] [address] [place] [address] [address], [place], [address], 03/22/2021 08:09:09 03/16/19 22 03/16/2021 STONE SWETHA SIS-L C hydroxyapati te 5 % Not Available [facility] [address], [place], [address], 03/22/2021 08:09:09 03/16/19 22 03/16/2021 STONE SWETHA SIS-L C photo Yonathan patel Photo graph will follo w under a separ ate cover Not Available [facility] [address] [place] [address] [address], [place], [address], 03/22/2021 08:09:09 03/16/19 22 03/16/2021 STONE SWETHA SIS-L C comment: Yonathan patel Physi yana quest ions regar ding Calcu li Swetha sis conta ct [facility] at: [phone]. Not Available [facility] [address] [place] [address] [address], [place], [address], 03/22/2021 08:09:09 03/16/19 22 03/16/2021 STONE SWETHA SIS-L C please note: Yonathan patel Calcu li repor t will follo w via compu ter, mail or couri er barbara fitzpatrick. Not Available [facility] [address] [place] [address] [address], [place], [address], 03/22/2021 08:09:09 03/16/19 22 03/16/2021 STONE SWETHA SIS-L C disclaimer: Yonathan patel This test was devel alexsandered and its perfo rmanc e shantelle cteri stics deter mined by [facility]. It has not been clear ed or appro julian by the Food and Drug Admin istra tion. Not Available [facility] [address] [place] [address] [address], [place], [address], 03/22/2021 08:09:09 03/16/19 22 03/16/2021 STONE SWETHA SIS-L C pdf . Not Available [facility] [address] [place] [address] [address], [place], [address], 03/22/2021 08:09:09 01/02/202025 UA WITHO UT MICRO - CS URISC AN blood - uriscan NEGATI VE negati ve Not Available [facility] [address] [place] [address] [address], [place], [address], 01/01/2025 11:00:18 01/02/20 25 01/01/2025 UA WITHO UT MICRO - CS URISC AN bilirubin - uriscan NEGATI VE mg/dL negati ve Not Available [facility] [address] [place] [address] [address], [place], [address], 01/01/2025 11:00:18 01/02/2001/01/2025 UA WITHO UT MICRO - CS URISC AN urobilinogen - uriscan NORMAL mg/dL normal Not Available [facility] [address] [place] [address] [address], [place], [address], 01/01/2025 11:00:18 01/02/2001/01/2025 UA WITHO UT MICRO - CS URISC AN ketones - uriscan NEGATI VE mg/dL negati ve Not Available [facility] [address] [place] [address] [address], [place], [address], 01/01/2025 11:00:18 01/02/20 25 01/01/2025 UA WITHO UT MICRO - CS URISC AN protein - uriscan NEGATI VE mg/dL negati ve Not Available [facility] [address] [place] [address] [address], [place], [address], 01/01/2025 11:00:18 01/02/20 25 01/01/2025 UA WITHO UT MICRO - CS URISC AN nitrites - uriscan NEGATI VE negati ve Not Available [facility] [address] [place] [address] [address], [place], [address], 01/01/2025 11:00:18 01/02/20 25 01/01/2025 UA WITHO UT MICRO - CS URISC AN glucose - uriscan NEGATI VE mg/dL negati ve Not Available [facility] [address] [place] [address] [address], [place], [address], 01/01/2025 11:00:18 01/02/2001/01/2025 UA WITHO UT MICRO - CS URISC AN pH - uriscan 7.00 5.00-9 .00 Not Available [facility] [address] [place] [address] [address], [place], [address], 01/01/2025 11:00:18 01/02/2001/01/2025 UA WITHO UT MICRO - CS URISC AN sp. gravity - uriscan <=1.01 1.01-1 .03 Not Available [facility] [address] [place] [address] [address], [place], [address], 01/01/2025 11:00:18 01/02/2001/01/2025 UA WITHO UT MICRO - CS URISC AN leukocytes - uriscan NEGATI VE negati ve Not Available [facility] [address] [place] [address] [address], [place], [address], 01/01/2025 11:00:18 01/02/2001/01/2025 UA WITHO UT MICRO - CS URISC AN color - uriscan LT. YELLOW lt. yellow ;yello w Not Available [facility] [address] [place] [address] [address], [place], [address], 01/01/2025 11:00:18 01/02/2001/01/2025 UA WITHO UT MICRO - CS URISC AN clarity - uriscan CLEAR clear Not Available [facility] [address] [place] [address] [address], [place], [address], 01/01/2025 11:00:18 01/02/2001/01/2025 UA WITHO UT MICRO - CS URISC AN total urine volume (mL) 80 /mL ----- ----- ----- ----- ----- ----- ----- ----- ----- ----- ----- ----- ----- ----- ---- *Max morrow note the follo wing minim um [...] ricardo at the same time in compl iance with the Centu ry Cures Act. Your provi ricardo may not have had time to revie w and make recom menda tions based on the resul t. Pleas e allow up to one week for provi ricardo revie w. Not Available [facility] [address], [place], [address], 01/01/2025 11:00:18 01/02/20 25 01/01/2025 URINE CULTU RE final report [facility] RES[facility] SOURC E Void KNOWN ALLER GIES NKDA TREAT MENT none MEDIA PLATE D AT: Media plate d on 01/01 @ 11:01 AM RESUL T No Growt h This lab resul t is being provi ded to you and your provi ricardo at the same time in compl iance with the Centu ry Cures Act. Your provi ricardo may not have had time to revie w and make recom menda tions based on the resul t. Pleas e allow up to one week for provi ricardo revie w. Not Available [facility] [address], [place], [address], 01/03/2025 11:50:37 03/11/19 22 03/08/2021 imagi ng/di agnos tic resul t No observ ation record ed. [email or web address] Not Available 2021 11:10:38 Result Notes None recorded. Problems Name Problem SNOMED Code Status Onset Date Resolution Date Notes Provider Name and Address Organization Details Recorded Time Ureteric stone 00658330 Active 2021 Mark Lewis MD [address] [place] [address],[address], [place], [address], [facility] 2 11:55:18 Parkinson's disease 66578017 Active 2023 Sheri Bingham [facility] 5 13:39:13 Lower urinary tract symptoms due to benign prostatic hypertrophy 7214053925481 1 Active 2024 Sapna Vigil MD [address] [place] [address],[address], [place], [address], [facility] 5 14:42:55 Increased frequency of urination 037074983 Active 2024 Sapna Vigil MD [address] [place] [address],[address], [place], [address], [facility] 5 14:42:57 Microscopic hematuria 319446373 Active 2024 Sapna Vigil MD [address] [place] [address],[address], [place], [address], [facility] 5 14:43:03 Kidney stone 26961386 Active 2024 Sapna Vigil MD [address] [place] [address],[address], [place], [address], [facility] 5 16:18:39 Benign prostatic hyperplasia 386321428 Active 2024 Sapna Vigil MD [address] [place] [address],[address], [place], [address], [facility] 5 12:57:27 Problem Notes None recorded. Procedures Surgical History Date Name Laterality Status Provider Name and Address Organization Details Recorded Time 01/02/20 25 Urine Culture completed Charo Edmond [facility] 12/30/2024 14:27:17 01/02/20 25 Urinalysis completed Nasrin Xiong [facility] 01/01/2025 10:50:08 12/10/19 25 Cystoscopy- male completed Sapna Vigil MD [address], [place], [address], [facility] 12/09/2024 16:16:59 02/20/19 21 Diagnostic [...] Available Not Available No t Available Vitals Date Recorded Body height Body mass index (BMI) Body weight Provider Name and Address Organization Details Last Updated DateTime 03/11/2021 182.88 cm 27.8 kg/m2 74438.44 g Paul Lazo [facility] 03/11/2021 16:49:26 Date Recorded Body mass index (BMI) Body weight Body height Provider Name and Address Organization Details Last Updated DateTime 12/02/2024 27.8 kg/m2 60651.05697 10210 g 182.88 cm Not Available Health Note 12/02/2024 13:56:51 Date Recorded Body height Body mass index (BMI) Body weight Provider Name and Address Organization Details Last Updated DateTime 12/09/2024 182.88 cm 27.8 kg/m2 70965.5464 192988 g Not Available Health Note 12/09/2024 14:50:38 Social History Question Answer Notes LastModified by Organizat ion Details LastModified Time Tobacco Smoking Status Former Smoker Not Available Health Note 11/28/2024 21:31:42 Do You Have An Advance Directive? No [email or web address] Information not available 11/28/2024 What Is Your Level Of Caffeine Consumption? Moderate [email or web address] Information not available 11/28/2024 How Much Tobacco Do You Chew? 1/day [email or web address] Information not available 11/28/2024 When Did You Quit Smoking? 16+yearssince lastcigarette [email or web address] Information not available 12/02/2024 Ethnicity Not /Lati no [email or web address] Information not available 12/02/2024 Preferred Language Ivorian [email or web address] Information not available 12/02/2024 Recreational Drug Use No [email or web address] Information not available 12/02/2024 Do You Have A Medical Power Of Pediatric Audiologist? Yes [email or web address] Information not available 11/28/2024 What Was The Date Of Your Most Recent Tobacco Screening? 12/09/2024 [email or web address] Information not available 12/05/2024 What Is Your [...] Functional Status Question Answer Note LastModified by Organizat ion Details LastModified Time Do you use [...] virus, trivalent, preservative 6 completed Not Available [facility] 01/01/2025 11:19:38 Hep A, ped/adol, 2 dose 8 completed Not Available [facility] 01/01/2025 11:19:38 Hep B, adult 8 completed Not Available [facility] 01/01/2025 11:19:38 Td (adult), 2 Lf tetanus toxoid, preservative free, adsorbed 5 completed Not Available [facility] 01/01/2025 11:19:38 Hep A, adult 8 completed Not Available [facility] 01/01/2025 11:19:38 Hep B, adult 8 completed Not Available [facility] 01/01/2025 11:19:38 Hep B, adult 8 completed Not Available [facility] 01/01/2025 11:19:38 Influenza, split virus, trivalent, preservative 8 completed Not Available [facility] 01/01/2025 11:19:38 Influenza, split virus, trivalent, preservative 9 completed Not Available [facility] 01/01/2025 11:19:38 influenza, unspecified formulation 0 completed Not Available [facility] 01/01/2025 11:19:38 Influenza, split virus, trivalent, preservative 1 completed Not Available [facility] 01/01/2025 11:19:38 Influenza, split virus, trivalent, preservative 2 completed Not Available [facility] 01/01/2025 11:19:38 Influenza, split virus, trivalent, preservative 2 completed Not Available [facility] 01/01/2025 11:19:38 measles 7 completed Not Available [facility] 01/01/2025 11:19:38 Influenza, split virus, trivalent, preservative 3 completed Not Available [facility] 01/01/2025 11:19:38 influenza, unspecified formulation 4 completed Not Available [facility] 01/01/2025 11:19:38 Influenza, split virus, quadrivalent, PF 6 completed Not Available [facility] 01/01/2025 11:19:38 Td (adult), 2 Lf tetanus toxoid, preservative free, adsorbed 6 completed Not Available [facility] 01/01/2025 11:19:38 Influenza, MDCK, quadrivalent, PF 7 completed Not Available [facility] 01/01/2025 11:19:38 Influenza, split virus, quadrivalent, PF 8 completed Not Available [facility] 01/01/2025 11:19:38 Influenza, split virus, quadrivalent, PF 9 completed Not Available [facility] 01/01/2025 11:19:38 zoster recombinant 0 completed Not Available [facility] 01/01/2025 11:19:38 zoster recombinant 0 completed Not Available [facility] 01/01/2025 11:19:38 Influenza, split virus, quadrivalent, PF 0 completed Not Available [facility] 01/01/2025 11:19:38 COVID-19, mRNA, LNP-S, PF, 30 mcg/0.3 mL dose 1 completed Not Available [facility] 01/01/2025 11:19:38 COVID-19, mRNA, LNP-S, PF, 30 mcg/0.3 mL dose 1 completed Not Available [facility] 01/01/2025 11:19:38 Influenza, split virus, quadrivalent, PF 1 completed Not Available [facility] 01/01/2025 11:19:38 COVID-19, mRNA, LNP-S, PF, 30 mcg/0.3 mL dose 1 completed Not Available [facility] 01/01/2025 11:19:38 COVID-19, mRNA, LNP-S, PF, 100 mcg/0.5mL dose or 50 mcg/0.25mL dose 2 completed Not Available [facility] 01/01/2025 11:19:38 COVID-19, mRNA, LNP-S, bivalent, PF, 30 mcg/0.3 mL dose 2 completed Not Available [facility] 01/01/2025 11:19:38 Influenza, MDCK, quadrivalent, PF 2 completed Not Available [facility] 01/01/2025 11:19:38 Influenza, split virus, quadrivalent, PF 3 completed Not Available [facility] 01/01/2025 11:19:38 COVID-19, mRNA, LNP-S, PF, vick-sucrose, 30 mcg/0.3 mL 4 completed Not Available [facility] 01/01/2025 11:19:38 Pneumococcal conjugate PCV20, polysaccharide [id number] conjugate, adjuvant, PF 4 completed Not Available [facility] 01/01/2025 11:19:38 COVID-19, mRNA, LNP-S, PF, vick-sucrose, 30 mcg/0.3 mL 4 completed Not Available [facility] 01/01/2025 11:19:38 Influenza, adjuvanted, trivalent, PF 4 completed Not Available [facility] 01/01/2025 11:19:38 Influenza, adjuvanted, trivalent, PF 5 completed Not Available [facility] 01/01/2025 11:19:38 COVID-19, mRNA, LNP-S, PF, 50 mcg/0.5 mL 5 completed Not Available [facility] 01/01/2025 11:19:38 Past Encounters Encounter ID Performer Location Encounter Start Date Encounter Closed Date Diagnosis/Indication Diagnosis SNOMED-CT Code Diagnosis ICD10 Code Diagnosis IMO Codes Diagnosis Note [id number] SAPNA [place], PAC [facility] [address] [facility] [address] [place] [address] 03/11/2021 16:07:46 03/12/2021 10:07:40 Ureteric stone 10381545 N20.1 60 y/o male here with right sided obstructin g stone last seen on 03/07 when pain started, in mid ureter. He had RBCs in urine only. A ct demonstrat ed an obstructin g stone that is 4 mm on right in mid ureter w/ mild hydronephr osis. There is also a 6 mm stone on left that the patient is aware of but knows that this is likely to be intervened on initially. No evidence of infection then. Denies infectious symptoms now. He is aware that he needs covid test and preop. Will be placed on [facility] [place] schedule for Monday the Feb. D/w him at length red flags that would lead him to the ED for emergent care if fevers, vomiting, increased pain or any other concerning symptoms begin. He is comfortabl e enough with oxycodone he has left, although he looks forward to the procedure. he will continue flomax and ibuprofen and will strain urine. Encouraged to call w/ questions. [id number] MD Xiomy Pate an [address] [facility],[address] [place] [address] 12/02/2024 13:56:34 12/02/2024 14:48:25 Lower urinary tract symptoms due to benign prostatic hypertrophy 8195391320 9101 N40.1 [id number] - bothered by his frequency and urgency q1h- likely related to chronic BPH +/ - constipati on- on flomax, tolerating w/o s/e- offered finasterid e, not interested - will eval his bladder and prostate on cysto, may be good urolift candidate- advised to minimize constipati on Microscopic hematuria 19 2431041 R31.29 [id number] We discussed the current guidelines as outlined by the [place] [employer] n regarding the evaluation of patients at risk for urothelial cell carcinoma. Given they are high risk, it is recommende d that they proceed with local cystoscopy and contrast enhanced triphasic upper tract imaging.-R TC for cysto Kidney stone 79559992 N2 0.0 09668 - ~1.1cm of left side non obstructin g stones- plan for surveillan ce- check KUB + US in 12mo [id number] MD Xiomy Pate an [address] [facility],[address] [place] [address] 12/09/2024 14:50:16 12/09/2024 16:23:05 Lower urinary tract symptoms due to benign prostatic hypertrophy 7428218289 9101 N40.1 79119433 - cysto today with bilateral obstructin g [...] in this I would referred him to [facility] onal radiology for considerat ion and he [...] botox in the future Microscopic hematuria 19 8013732 R31.29 733771 -CTU showing few small stones, will survel-cys to negative for bladder cause Kidney stone 66386433 N2 0.0 39136 - ~1.1cm of left side non obstructin g stones- plan for surveillan ce- check KUB + US in 12mo [id number] Sapna Vigil MD [facility] [address] [place] [address],[facility] e [address] [place] [phone] 01/01/2025 10:21:39 01/01/2025 10:53:22 Lower urinary tract symptoms due to benign prostatic hypertrophy 6324574735 9101 N40.1 [id number] Health Concerns Section Related Observation LastModified by Organization Detai ls LastModified Time None Recorded Concern Status LastModified by Organization Details LastModified Time None Recorded Advance Directives Directive N: Payers Insurance Date Sequence Insurance Name Policy Number Policy Ivy Covered Member ID Ivy Member ID Guarantor Name 01/07/2025 1 [facility] - MEDICARE COST [id number] Sapna Ureña [id number] Sapna Ureña 11/29/[address] [facility] Sapna Ureña [id number] Sapna Ureña 11/29/[address] [facility] Sapna Ureña [id number] Sapna Ureña 12/02/2024 1 [employer] - INDIVIDUAL AND FAMILY (HMO) [id number] Sapna Ureña [id number] Sapna Ureña Notes Date Note Type Note Provider Name and Address Organization Details Recorded Time 03/11/2021 text/html ROS as noted in the HPI 60 y/o male here for reevaluation of right sided pain d/t a 4 mm obstructing stone at mid right ureter as of 03/07/21. His pain has persisted. Pain is at right side low back. No hematuria visible. Pain was severe in AM today but now better. No f/c/s. No other infectious symptoms such as weakness or general malaise. Denies nausea and vomiting. He was sent in given pain and needs to be on schedule for stone procedure. Taking oxycodone, ibuprofen and flomax. Sapna beatty [place] - [facility] 03/12/2021 05:12:59 12/02/2024 text/html ROS as noted in the HPI 64yo m here for evaluation of multiple urologic issues microhematuria - recent ua with microhematuria. had similar microheme in 2021. CTU done shows 10mm L side LP kidney stone nonobstructing. no hydro. remote hx of smoking. no fhx gu cancer kidney stones - last treated in [address] Mcguire. +Fhx. not having any flank pain currently Luts - hx of primarily frequency and urgency with some slow stream. nocturia x3-4. on flomax tolerating w/o s/e. no GH. no UTI. bothered. PVR 30cc. ipss 7 hx of ?parkinsons and ?RLSCTU reviewed - 10mm LLP stone, no hydro. no kidney mass. prostate ~40cc.psa 0.2 Sapna Vigil MD [address] [facility],[address], [place], [address], [facility] 12/02/2024 14:45:20 12/09/2024 text/html 64yo m here for evaluation of luts, microhematuria LUTS - storage and voiding sxs. pvr 30. has parkinsons. bothered. on flomax, max dose. vol 40cc hematuria - microheme, CTU w/ stones no masses. no gross hematuria Sapna Vigil MD [address] [facility],[address], [place], [address], [facility] 12/09/2024 16:19:57
--- OUTSIDE RECORDS SUMMARY | 2025-01-10 16:26 | XMS_ITS | Continuity of Care Document ---
Author Organization [facility], [facility] Address [address] [facility] [address] [place] [address] Care Team Providers Care Verifier Operator Name Role Phone ELSY NORWOOD Primary Care Provider Assessment Encounter Date Assessment Date Assessment LastModified by Organization Details LastModified Time 12/02/2024 12/02/2024 64yo m here for evaluation of multiple urologic issues [email or web address] Not available 12/02/2024 14:42:52 Plan of Treatment Reminders Order Date Submit Date Provider Last Modified By Organization Details Last Modified Time Details Appointments HOSPITAL 30 2024 08:30A M Mat Vigil MD Not available Not available Not available POST OP 15 2024 09:30A M Mat Vigil MD Not available Not available Not available Lab None recorded. Referral None recorded. Procedures None recorded. Surgeries None recorded. Imaging None recorded. Medication Orders None recorded. Patient TargetsNo targets recorded. Patient InstructionsNo instructions recorded. Reason for Referral None Reported. Problems Name Problem SNOMED Code Status Onset Date Resolution Date Notes Provider Name and Address Organization Details Recorded Time Ureteric stone 70586864 Active 2021 Mark Lewis MD [address] [place] [address] [place] [address], [phone], [facility] 2 11:55:18 Parkinson's disease 61777875 Active 2023 Sheri beatty [facility] 5 13:39:13 Lower urinary tract symptoms due to benign prostatic hypertrophy 2747451435708 1 Active 2024 Mat Vigil MD [address] [place] [address],[address], [place], [address], [facility] 5 14:42:55 Increased frequency of urination 659337524 Active 2024 Mat Vigil MD [address] [place], [place] [address] [place] [address], [phone], [facility] 5 14:42:57 Microscopic hematuria 044376730 Active 2024 Mat Vigil MD [address] [place], [place] [address] [address] [place] [address], [phone], [facility] 5 14:43:03 Kidney stone 14765683 Active 2024 Mat Vigil MD [address] [place] [address], [phone], [facility] 5 16:18:39 Benign prostatic hyperplasia 824659640 Active 2024 Mat Vigil MD [address] [place] [address], [phone], [facility] 5 12:57:27 Problem Notes None recorded. Procedures Surgical History Date Name Laterality Status Provider Name and Address Organization Details Recorded Time 01/02/20 25 Urine Culture completed Charo Edmond [facility] 12/30/2024 14:27:17 01/02/20 25 Urinalysis completed Nasrin Xiong [facility] 01/01/2025 10:50:08 12/10/19 25 Cystoscopy- male completed Mat Vigil MD [address] [place] [address],[address], [place], [address], [facility] 12/09/2024 16:16:59 02/20/19 21 Diagnostic colonoscopy [...] No t Available Vitals Date Recorded Body mass index (BMI) Body weight Body height Provider Name and Address Organization Details Last Updated DateTime 12/02/2024 27.8 kg/m2 75965.72198 90027 g 182.88 cm Not Available Health Note 12/02/2024 13:56:51 Social History Question Answer Notes LastModified by [...] 11/28/2024 When Did You Quit Smoking? 14+yearssince rosario [email or web address] Information not available 12/02/2024 Ethnicity Not /Lati no [email or web address] Information not available 12/02/2024 Preferred Language Portuguese [email or web address] Information not available 12/02/2024 Recreational Drug Use No [email or web address] Information not available 12/02/2024 Do You Have A Medical Power Of Data Operations Director? Yes [email or web address] Information not available 11/28/2024 What Was The Date Of Your Most Recent Tobacco Screening? 12/09/2024 Information not available 12/05/2024 What Is Your [...] History Nothing Reported. Medical History Condition Response Diabetes N Sexually Transmitted Infection N Bleeding Disorder N High Blood Pressure N Kidney Stones Y Cancer N Lung Disease N Depression N High Cholesterol Y GERD/Acid Reflux N [...] virus, trivalent, preservative 8 completed Not Available [facility] 01/01/2025 11:19:38 Influenza, split virus, trivalent, preservative 9 completed Not Available [facility] 01/01/2025 11:19:38 influenza, unspecified formulation 0 completed Not Available [facility] 01/01/2025 11:19:38 Influenza, split virus, trivalent, preservative 1 completed Not Available [facility] influenza, unspecified formulation 4 completed Not Available [facility] 50 mcg/0.25mL dose 2 completed Not Available [facility] 01/01/2025 11:19:38 COVID-19, mRNA, LNP-S, bivalent, PF, 30 mcg/0.3 mL dose 2 completed Not Available [facility] 01/01/2025 11:19:38 Influenza, MDCK, quadrivalent, PF 2 completed Not Available [facility] 01/01/2025 11:19:38 Influenza, split virus, quadrivalent, PF 3 completed Not Available [facility] 01/01/2025 11:19:38 COVID-19, mRNA, LNP-S, PF, vick-sucrose, 30 mcg/0.3 mL 4 completed Not Available [facility] 01/01/2025 11:19:38 Pneumococcal conjugate PCV20, polysaccharide [id number] conjugate, adjuvant, PF 4 completed Not Available [facility] 01/01/2025 11:19:38 COVID-19, mRNA, LNP-S, PF, vick-sucrose, 30 mcg/0.3 mL 4 completed Not Available [facility] 01/01/2025 11:19:38 Influenza, adjuvanted, trivalent, PF 4 completed Not Available [facility] 01/01/2025 11:19:38 Influenza, adjuvanted, trivalent, PF 5 completed Not Available [facility] 01/01/2025 11:19:38 COVID-19, mRNA, LNP-S, PF, 50 mcg/0.5 mL 5 completed Not Available [facility] 01/01/2025 11:19:38 Past Encounters Encounter ID Performer Location Encounter Start Date Encounter Closed Date Diagnosis/Indication Diagnosis SNOMED-CT Code Diagnosis ICD10 Code Diagnosis IMO Codes Diagnosis Note [id number] Mat Vigil MD [facility] [address] [facility] [address] [place] [address] 12/02/2024 13:56:34 12/02/2024 14:48:25 Lower urinary tract symptoms due to benign prostatic hypertrophy 9410400393 9101 N40.1 02448349 - bothered by his frequency and urgency q1h- likely related to chronic BPH +/ - constipati on- on flomax, tolerating w/o s/e- offered finasterid e, not interested - will eval his bladder and prostate on cysto, may be good urolift candidate- advised to minimize constipati on Microscopic hematuria 19 4859648 R31.29 020114 We discussed the current guidelines as outlined by the [employer] n regarding the evaluation of patients at risk for urothelial cell carcinoma. Given they are high risk, it is recommende d that they proceed with local cystoscopy and contrast enhanced triphasic upper tract imaging.-R TC for cysto Kidney stone 93957603 N2 0.0 73090 - ~1.1cm of left side non obstructin g stones- plan for surveillan ce- check KUB + US in 12mo Health Concerns Section Related Observation LastModified by Organization Detai ls LastModified Time None Recorded Concern Status LastModified by Organization Details LastModified Time None Recorded Payers Encounter Date Sequence Insurance Name Policy Number Policy Ivy Covered Member ID Ivy Member ID Guarantor Name 12/02/2024 1 [employer] MEDICARE COST [id number] Mat Ureña [id number] Mat Ureña Notes Date Note Type Note Provider Name and Address Organization Details Recorded Time 12/02/2024 text/html ROS as noted in the [...] hydro. no kidney mass. prostate ~40cc.psa 0.2 Mat Vigil MD [address] [facility],[address], [place], [address], [place] [facility] [place] [facility] 12/02/2024 14:45:20
--- OUTSIDE RECORDS SUMMARY | 2025-01-10 16:26 | XMS_ITS | Clinical Summary ---
Author Organization [facility] Address [address] [place] [address] Care Team Providers Care Baking Assistant Name Role Phone Yoseph Horowitz MD Primary Care Provider Lana Mcconnell Unavailable [phone] Allergies No known active allergies Medications Onhxl-[id number]- Fish Oil 1,000 mg (120 mg-180 mg) capIndications:W ell adult exam Take 1 Capsule (1,000 mg) by mouth. 0 08/15/2022 Active Saw [place] Daniel 160 mg capsuleIndicatio ns:Well adult exam Take by mouth. 0 08/15/2022 Active tamsulosin 0.4 mg capsuleIndicatio ns:Right ureteral stone Take 1 Capsule (0.4 mg) by mouth once daily after a meal. 90 Capsule 3 10/14/2024 Active pregabalin (LYRICA) 25 mg capsuleIndicatio ns:Restless legs syndrome (RLS) Take 1 Capsule (25 mg) by mouth at bedtime. 90 Capsule 2 10/14/2024 Active colchicine 0.6 mg tabletIndication s:Idiopathic gout, unspecified chronicity, unspecified site Take 1 Tablet (0.6 mg) by mouth 2 times daily if needed for Gout Pain. 30 Tablet 2 10/14/2024 Active carbidopa-levodo pa controlled release (25-100 mg) (SINEMET ER 25-100) 25-100 mg tablet Take 2 Tablets by mouth three times daily. 12/23/2024 12/24/19 Active melatonin 10 mg tablet 10 mg once daily in the evening. Active Active Problems Problem Noted Date Diagnosed Date Mixed hyperlipidemia 03/29/2024 Restless leg syndrome 03/15/2023 Cervical myelopathy 08/17/2022 DDD (degenerative disc disease), lumbar 11/28/19 Spinal stenosis of lumbar region 11/28/2019 Encounter for screening colonoscopy JOVAN 07/24/2021 AHI-13 RSWA RBD (REM behavioral disorder) Parkinson's disease Resolved Problems Problem Noted Date Diagnosed Date Resolved Date Sinoatrial node dysfunction 06/11/2021 10/14/2024 Encounters Date Type Department Care Team Description 12/27/2024 Orders Only [facility] [address] [place] [address] Huma Cochran DO 1 scan: (1-Ord) 12/26/2024 12/26/2024 3:10 PM CLAY ROASTER Office Visit [facility] [address] [place] [address] Huma Cochran DO Pre-Op Exam 12/25/2024 Travel 12/09/2024 Orders Only [facility] Scanner 1 scan: (1-Ord) [facility] UROLOGY, CYSTOSCOPY, 12/09/2024 12/06/2024 Telephone [facility] [address] [place] [address] Yoseph Horowitz MD Form (physician medical release form) 11/22/2024 8:30 AM CDT Office Visit [facility] [address] [place] [address] Lana Mcconnell PA Consult (- Microhematuria /CT 10/28/24 /) 11/22/2024 Travel 11/18/2024 Travel 10/28/2024 8:15 AM CDT - 10/28/2024 11:59 PM CDT Hospital Encounter [facility] [address] [place] [address] Yoseph Horowitz MD Microhematuria 10/28/2024 Travel 10/17/2024 Telephone [facility] [address] [place] [address] Yoseph Horowitz MD 10/14/2024 10:20 AM CDT Office Visit [address] [phone] Yoseph Horowitz MD Medicare ANNUAL (subsequent) Visit (Gout, cholesterol, heart and left foot drop ? Left shoulder pain ) 10/14/2024 Travel 10/10/2024 Travel from Last 3 Months Immunizations Immunization Administration Dates Next Due COVID-19 VACCINE SPIKEVAX (M ODERNA 50MCG/0.5ML) 12YO+ PFS 12/26/2024 COVID-19 vaccine (Pfizer-Bio NTech 30mcg/0.3mL) PF, MDV 05/16/2020,04/25/2020 Hepatitis A (Adult) 10/25/2007 Hepatitis A (Peds) 04/19/2007 Hepatitis B (Adult) 10/25/2007,06/21/2007,2007 Influenza Virus, Unspecified 02/20/2022 Influenza, IIV4 12/30/2022,,10/25/2019,2018,01/04/2018,01/01/2016 Influenza, Inactivated IIV3 (Age 65+ Years) Preserv Free 12/26/2024,12/19/2023 Influenza,CCIIV4 PRESERV FREE 10/28/2021 Measles 06/30/1976 Pneumococcal Conj 20-valent (Prevnar 20) 08/14/2023 Td (Age >=7 Years) 01/01/2016,01/12/2005 Zoster (Shingrix-RZV, recombinant) 07/31/2019, Family History Medical History Relation Name Comments Heart Disease Mother Skin cancer Other Relation Name Status Comments Mother Other Social History Tobacco Use Types Packs/Day Years Used Date Smoking Tobacco: Never Smokeless Tobacco: Never Tobacco Cessation:Counseling Given: Yes Alcohol Use Standard Drinks/Week Comments Yes 3 (1 standard drink = 0.6 oz pur e alcohol) PHQ-2 Answer Date Recorded PHQ-2 TOTAL SCORE 0 10/14/2024 Social Connections Answer Date Recorded Do you often feel lonely or isolated from those around you? 0 01/01/2024 Alcohol Use Answer Date Recorded How often do you have a drink containing alcohol ? 3 12/26/2024 How many drinks containing a lcohol do you have on a typical day when you are drinking? 1 12/26/2024 How often do you have five or more drinks on one occasion? 1 12/26/2024 Financial Resource Strain Answer Date R ecorded Difficulty of Paying Living Expenses 3 01/01/2024 Difficulty of Paying Living Expenses Not on file 01/01/2024 Food Insecurity Answer Date Recorded Do you worry your food will run out before you are able to buy more? 1 01/01/2024 Transportation Needs Answer Date Record ed Does lack of transportation keep you from medica l appointments? 1 01/01/2024 Does lack of transportation keep you from work, meetings or getting things that you need? 1 01/01/2024 Housing Stability Answer Date Recorded What is your housing situation today? 1 01/01/2024 Utilities Answer Date Recorded Do you have trouble paying f or utilities (for example, heat, electricity, water, phone)? 1 01/01/2024 Sex and Gender Information Value Date Recorded Sex Assigned at Not on file Legal Sex Male 2:35 PM CLAY ROASTER Gender Identity Not on file Sexual Orientation Not on file Obstetrics History Last Filed Vital Signs Vital Sign Reading Time Taken Comments Blood Pressure 122/58 12/26/2024 3:47 PM CLAY ROASTER Pulse 66 12/26/2024 3:47 PM CLAY ROASTER Temperature 36.9 C (98.5 F) 12/26/2024 3:47 PM CLAY ROASTER Respiratory Rate 16 12/26/2024 3:47 PM CLAY ROASTER Oxygen Saturation 99% 12/26/2024 3:47 PM CLAY ROASTER Inhaled Oxygen Concentration - - Weight 93.6 kg (206 lb 6.4 oz) 12/26/2024 3:47 P M CLAY ROASTER Height 181.3 cm (5' 11.38) 12/26/2024 3:[address] Body Mass Index 28.48 12/26/2024 3:47 PM CLAY ROASTER Plan of Treatment Upcoming Encounters Date Type Department Care Team (Late st Contact Info) Description 02/27/2025 12:30 PM CLAY ROASTER Procedure Only [facility] [address] [place] [phone] Christine Mcguire MD [address] [place] [address] 06/24/2025 10:00 AM CDT Office Visit [facility] [address] [facility] [address] [place] [address] [place] [address] [place] [address] Health Maintenance Due Date Last Done Comments RSV vaccine for adults or (1 - Risk 50-74 years 1-dose series) 2008 Depression screening for age 12+ 10/14/2025 10/14/2024, 08/14/2023, 08/15/2022, Additional history exists Medicare Wellness for age 65+ 10/15/2025 10/14/2024, 08/14/2023 BMI (ht and wt on same day) for age 18+ 12/26/2025 12/26/2024, 01/03/2024, 10/03/2023, Additional history exists Tetanus booster 12/31/2025 01/01/2016, 01/12/2005 Lipids for age 45-75 10/14/2029 10/14/2024, 08/25/2023, 08/15/2022, Additional history exists Colonoscopy through age 75 01/01/2030 01/02/2020 Hepatitis B series for 19+ Completed 10/24, 06/21/2007, 04/19/2007 Zoster (shingles) series for age 50+ Completed 07/31/2019, 03/26/2019 Hepatitis C screening for ag e 18-79 Completed 06/09/2021 Pneumococcal series for age 50+ Completed Influenza Vaccine Completed 12/26/2024, , 12/30/2022, Additional history exists Procedures Procedure Name Priority Date/Time Associated Diagnosis Comments CBC W PLT NO DIFF Routine 12/26/2024 4:5 6 PM CLAY ROASTER Preop examination EKG 12 LEAD Routine 12/26/2024 12:00 AM CLAY ROASTER Preop examination SCAN-OPERATIVE/PROC EDURE REPORT 12/09/2024 12:00 AM CDT GA TRACE POST-VOIDING RESIDUAL URINE&/BLADDER CAP Routine 11/22/2024 12:00 AM CDT Enlarged prostate CT ABDOMEN PELVIS UROGRAM WWO Routine 10/28/2024 8:44 AM CDT Microhematuria URINALYSIS MICROSCOPIC Routine 10/14/2024 11:09 AM CDT Parkinson's disease, unspecified whether dyskinesia present, unspecified whether manifestations fluctuate (HC) UA W/ SEDIMENT EXAM REFLEXED PER CRITERIA Routine 10/14/2024 11:09 AM CDT Parkinson's disease, unspecified whether dyskinesia present, unspecified whether manifestations fluctuate (HC) PSA TOTAL Routine 10/14/2024 11:03 AM CDT Screening PSA (prostate specific antigen) URIC ACID Routine 10/14/2024 11:03 AM CDT Idiopathic gout, unspecified chronicity, unspecified site LIPID PANEL W REFLEX MEASURED LDL Routine 10/14/2024 11:03 AM CDT Mixed hyperlipidemia TSH Routine 10/14/2024 11:03 AM CDT Mixed hyperlipidemia CBC W PLT NO DIFF Routine 10/14/2024 11: 03 AM CDT Parkinson's disease, unspecified whether dyskinesia present, unspecified whether manifestations fluctuate (HC) BASIC METABOLIC PANEL Routine 10/14/2024 11:03 AM CDT Parkinson's disease, unspecified whether dyskinesia present, unspecified whether manifestations fluctuate (HC) ANTI HCV Routine 06/09/2021 9:39 AM CDT Encounter for hepatitis C screening test for low risk patient COLONOSCOPY 01/02/2020 9:32 AM CLAY ROASTER from Last 3 Months or Most Recently Relevant to Health Maintenance Results * CBC W PLT NO DIFF (12/26/2024 4:56 PM CLAY ROASTER) Only the most recent of2 resultswithin the time period is included. WHITE BLOOD CELL COUNT 5.4 3.8 - 10.8 Thousand/u L 12/27/2024 3:54 AM CLAY ROASTER [facility] RED BLOOD CELL COUNT 4.36 4.20 - 5.80 Million/uL 12/27/2024 3:54 AM CLAY ROASTER [facility] HEMOGLOBIN 14.0 13.2 - 17.1 g/dL 12/27/2024 3:54 AM CLAY ROASTER [facility] HEMATOCRIT 40.9 38.5 - 50.0 % 12/27/2024 3:54 AM CLAY ROASTER [facility] MCV 93.8 80.0 - 100.0 fL 12/27/2024 3:54 AM CLAY ROASTER [facility] MCH 32.1 27.0 - 33.0 pg 12/27/2024 3:54 AM CLAY ROASTER [facility] MCHC 34.2 32.0 - 36.0 g/dL 12/27/2024 3:54 AM CLAY ROASTER [facility] Comment: For adults, a slight decrease in the calculated MCHC value (in the range of 30 to 32 g/dL) is most likely not clinically significant; however, it should be interpreted with caution in correlation with other red cell parameters and the patient's clinical condition. RDW 12.5 11.0 - 15.0 % 12/27/2024 3:54 AM CLAY ROASTER [facility] PLATELET COUNT 177 140 - 400 Thousand/u L 12/27/2024 3:54 AM CLAY ROASTER [facility] MPV 11.4 7.5 - 12.5 fL 12/27/2024 3:54 AM CLAY ROASTER [facility] Blood BLOOD SPECIMEN / Unknown [facility] / Unknown 12/26/2024 4:56 PM CLAY ROASTER 12/26/2024 4:57 PM CLAY ROASTER us Huma Cochran DO HEMATOLOGY Final Result [facility] [address] [place] [address], [place] [phone] * EKG 12 LEAD (12/26/2024 12:00 AM CLAY ROASTER) us Huma Cochran DO EKG ORD Final Result * SCAN-OPERATIVE/PROCEDURE REPORT (12/09/2024 12:00 AM CDT) us Scanner OTHER Final Result * GA TRACE POST-VOIDING RESIDUAL URINE&/BLADDER CAP (11/22/2024 12:00 AM CDT) Lana TORRES PB - URINARY SYSTEM SERVI KAN Final Result * CT ABDOMEN PELVIS UROGRAM WWO (10/28/2024 8:44 AM CDT) Anatomical Region Laterality Modality Abdomen, Pelvis, KIDNEYS, BLADDER Computed Tomography 10/28/2024 9:17 AM CDT Impressions 10/28/2024 9:17 AM CDT 1. Nonobstructing left nephrolithiasis. No downstream calculi or hydronephrosis. Right kidney collecting system, ureter and bladder unremarkable. Prostate is very slightly enlarged. 2. Constipation. Please note that all CT scans at this facility use dose modulation, iterative reconstruction, and/or weight-based dosing when appropriate to reduce radiation dose to as low as reasonably achievable. Dictated by Serafin Maynard MD @ 10/28/2024 9:17:25 AM (Electronically Signed) Narrative 10/28/2024 9:17 AM CDT For Patients: As a result of the Cures Act, medical imaging exams and procedure reports are released immediately into your electronic medical record. You may view this report before your referring provider. If you have questions, please contact your health care provider. INDICATION: Microhematuria TECHNIQUE: CT abdomen and pelvis urogram without and with IV contrast. Contrast images were obtained in the nephrographic and delayed phases. COMPARISON: 10/14/2021 FINDINGS: Lower chest: Lung bases are clear. Heart size normal. Liver: Unremarkable. Spleen: Unremarkable. Pancreas: Unremarkable. Gallbladder and bile ducts: Unremarkable. Kidneys: Nonobstructing left renal calculi measuring 10 mm (2/99) and 1 mm 2/74 and 107) no right kidney or ureteral stones. The kidneys are normal in caliber and demonstrate normal uptake and excretion of IV contrast. No masses or hydronephrosis. The renal collecting systems and ureters are symmetrical, normal in caliber, and without evidence of mass or filling defect. Adrenal glands: Unremarkable. GI tract: Prominent colonic stool burden. Small bowel and appendix normal. No wall thickening, inflammation or obstructive pattern. Vascular structures: Aorta heavily calcified. No aneurysm. Lymph nodes: No lymphadenopathy. Miscellaneous: Unremarkable. No free air or significant free fluid. Fat present in a small left inguinal hernia. Pelvic Organs: Mild prostate enlargement and slight effacement of the bladder base. Bladder otherwise unremarkable. Bones: Degenerative thoracic and lumbar spine. No lytic or osteoblastic lesions. Procedure Note Avinash Maynard MD - 10/28/2024 For Patients: As a result of the Cures Act, medical imagingexams and procedure reports are released immediately into your electronicmedical record. You may view this report before your referring provider.If you have questions, please contact your health care provider. INDICATION: Microhematuria TECHNIQUE: CT abdomen and pelvis urogram without and with IV contrast. Contrastimages were obtained in the nephrographic and delayed phases. COMPARISON: 10/14/2021 FINDINGS: Lower chest: Lung bases are clear. Heart size normal. Liver: Unremarkable. Spleen: Unremarkable. Pancreas: Unremarkable. Gallbladder and bile ducts: Unremarkable. Kidneys: Nonobstructing left renal calculi measuring 10 mm (2/99) and 1 mm2/74 and 107) no right kidney or ureteral stones. The kidneys are normalin caliber and demonstrate normal uptake and excretion of IV contrast. Nomasses or hydronephrosis. The renal collecting systems and ureters aresymmetrical, normal in caliber, and without evidence of mass or fillingdefect. Adrenal glands: Unremarkable. GI tract: Prominent colonic stool burden. Small bowel and appendix normal.No wall thickening, inflammation or obstructive pattern. Vascular structures: Aorta heavily calcified. No aneurysm. Lymph nodes: No lymphadenopathy. Miscellaneous: Unremarkable. No free air or significant free fluid. Fatpresent in a small left inguinal hernia. Pelvic Organs: Mild prostate enlargement and slight effacement of thebladder base. Bladder otherwise unremarkable. Bones: Degenerative thoracic and lumbar spine. No lytic or osteoblasticlesions. IMPRESSION: 1. Nonobstructing left nephrolithiasis. No downstream calculi orhydronephrosis. Right kidney collecting system, ureter and bladderunremarkable. Prostate is very slightly enlarged. 2. Constipation. Please note that all CT scans at this facility use dose modulation,iterative reconstruction, and/or weight-based dosing when appropriate toreduce radiation dose to as low as reasonably achievable. Dictated by Serafin Maynard MD @ 10/28/2024 9:17:25 AM (Electronically Signed) Yoseph Horowitz MD CT Final R esult * (ABNORMAL) URINALYSIS MICROSCOPIC (10/14/2024 11:09 AM CDT) RBC 6-10(A) 0-2, None Seen /HPF 10/14/2024 11:21 AM T [facility] WBC 0-2 0-2, 3-5, None Seen /HPF 10/14/2024 11:21 AM T [facility] BACTERIA Few None Seen, Rare, Few Bacteria/H PF 10/14/2024 11:21 AM [facility] EPITHELIAL CELLS Few None Seen, Few Epi/HPF 10/14/2024 11:21 AM [facility] Mucus Present 10/14/2024 11:21 AM [facility] Urine URINE SPECIMEN / Unknown Non-Blood / Unknown 10/14/2024 11:09 AM CDT 10/14/2024 11:09 AM CDT Yoseph Horowitz MD URINE Final R esult [facility] [address] [place] [address] * (ABNORMAL) UA W/ SEDIMENT EXAM REFLEXED PER CRITERIA (10/14/2024 11:09 AM CDT) COLOR Yellow Yellow Color 10/14/2024 11:17 AM T [facility] CLARITY Clear Clear Clarity 10/14/2024 11:17 AM T [facility] SPECIFIC GRAVITY,URINE 1.015 1.010, 1.015, 1.020, 1.025 10/14/2024 11:17 AM [facility] PH,URINE 6.0 6.0, 7.0, 8.0, 5.5, 6.5, 7.5, 8.5 10/14/2024 11:17 AM [facility] UROBILINOGEN, QUALITATIVE Normal Normal EU/dl 10/14/2024 11:17 AM [facility] PROTEIN, URINE Negative Negative mg/dL 10/14/2024 11:17 AM T [facility] GLUCOSE, URINE Negative Negative mg/dL 10/14/2024 11:17 AM [facility] KETONES,URINE Negative Negative mg/dL 10/14/2024 11:17 AM [facility] BILIRUBIN,URI NE Negative Negative 10/14/2024 11:17 AM [facility] OCCULT BLOOD,URINE Trace(A) Negative 10/14/2024 11:17 AM [facility] NITRITE Negative Negative 10/14/2024 11:17 AM [facility] LEUKOCYTE ESTERASE Negative Negative 10/14/2024 11:17 AM [facility] Urine URINE SPECIMEN / Unknown Non-Blood / Unknown 10/14/2024 11:09 AM CDT 10/14/2024 11:09 AM T us Yoseph Horowitz MD URINE Final R esult [facility] [address] [place] [id number] * (ABNORMAL) LIPID PANEL W REFLEX MEASURED LDL (10/14/2024 11:03 AM CDT) CHOLESTEROL, TOTAL 270(H) <200 mg/dL 10/15/2024 3:53 AM CDT [facility] TRIGLYCERIDES 93 <150 mg/dL 10/15/2024 3:53 AM CDT [facility] HDL CHOLESTEROL 63 > OR = 40 mg/dL 10/15/2024 3:53 AM CDT [facility] NON HDL CHOLESTEROL 207(H) <130 mg/dL (calc) 10/15/2024 3:53 AM CDT [facility] Comment: For patients with diabetes plus 1 major ASCVD risk factor, treating to a non-HDL-C goal of <100 mg/dL (LDL-C of <70 mg/dL) is considered a therapeutic option. CHOL/HDLC RATIO 4.3 <5.0 (calc) 10/15/2024 3:53 AM CDT [facility] LDL-CHOLESTEROL 186(H) mg/dL (calc) 10/15/2024 3:53 AM CDT [facility] Comment: Reference range: <100 Desirable range <100 mg/dL for primary prevention; <70 mg/dL for patients with CHD or diabetic patients with > or = 2 CHD risk factors. LDL-C is now calculated using the Gladis calculation, which is a validated novel method providing better accuracy than the Friedewald equation in the estimation of LDL-C. Carlos DESAI et al. SONNY. 2013;310(19): 7974-3302 (http://education.Akredo.Posterbee/faq/TRG181) Blood BLOOD SPECIMEN / Unknown [facility] / Unknown 10/14/2024 11:03 AM CDT 10/14/2024 11:05 AM CDT Yoseph Horowitz MD CHEMISTRY Final R esult Performing Organization Address City/[facility] [address]/ZIP Co de Phone Number [facility] [address] [phone], * TSH (10/14/2024 11:03 AM CDT) TSH 1.55 0.40 - 4.50 mIU/L 10/15/2024 6:24 AM CDT [facility] Blood BLOOD SPECIMEN / Unknown [facility] / Unknown 10/14/2024 11:03 AM CDT 10/14/2024 11:05 AM CDT Yoseph Horowitz MD CHEMISTRY Final R esult Performing Organization Address [facility] [address]/ZIP Co de Phone Number [facility] [address] [phone], * URIC ACID (10/14/2024 11:03 AM CDT) URIC ACID 6.9 4.0 - 8.0 mg/dL 10/15/2024 3:53 AM CDT [facility] Comment:Therapeutic target f or gout patients: <6.0 mg/dL Blood BLOOD SPECIMEN / Unknown [facility] / Unknown 10/14/2024 11:03 AM CDT 10/14/2024 11:05 AM CDT Yoseph Horowitz MD CHEMISTRY Final R esult Performing Organization Address [facility] [address]/[facility] Co de Phone Number [facility] [address] [address], * PSA TOTAL (DIAG OR SCREEN) (10/14/2024 11:03 AM CDT) Pathologist [facility] PSA, TOTAL 0.19 < OR = 4.00 ng/mL 10/15/2024 6:24 AM CDT [facility] Comment: The total PSA value from this assay system is standardized against the WHO standard. The test result will be approximately 20% lower when compared to the equimolar-standardized total PSA (Jose De Jesus Janette). Comparison of serial PSA results should be interpreted with this fact in mind. This test was performed using the Siemens chemiluminescent method. Values obtained from different assay methods cannot be used interchangeably. PSA levels, regardless of value, should not be interpreted as absolute evidence of the presence or absence of disease. Blood BLOOD SPECIMEN / Unknown [facility] / Unknown 10/14/2024 11:03 AM CDT 10/14/2024 11:05 AM CDT Yoseph Horowitz MD CHEMISTRY Final R esult Performing Organization Address [facility] [address]/[facility] Co de Phone Number [facility] [address] [address], * BASIC METABOLIC PANEL (10/14/2024 11:03 AM CDT) Pathologist [facility] SODIUM 138 135 - 146 mmol/L 10/15/2024 3:53 AM CDT [facility] POTASSIUM 4.4 3.5 - 5.3 mmol/L 10/15/2024 3:53 AM CDT [facility] CARBON DIOXIDE 29 20 - 32 mmol/L 10/15/2024 3:53 AM CDT [facility] GLUCOSE 98 65 - 99 mg/dL 10/15/2024 3:53 AM CDT [facility] Comment: Fasting reference interval CALCIUM 9.6 8.6 - 10.3 mg/dL 10/15/2024 3:53 AM CDT [facility] CREATININE 1.15 0.70 - 1.35 mg/dL 10/15/2024 3:53 AM CDT [facility] BUN/CREATININE RATIO SEE NOTE: 6 - 22 (calc) 10/15/2024 3:53 AM CDT [facility] Comment: Not Reported: BUN and Creatinine are within reference range. EGFR 70 > OR = 60 mL/min/1. 73m2 10/15/2024 3:53 AM CDT [facility] UREA NITROGEN (BUN) 15 7 - 25 mg/dL 10/15/2024 3:53 AM CDT [facility] ELECTROLYTE BALANCE 8 7 - 17 mmol/L (calc) 10/15/2024 3:53 AM CDT [facility] CHLORIDE 101 98 - 110 mmol/L 10/15/2024 3:53 AM CDT [facility] Blood BLOOD SPECIMEN / Unknown [facility] / Unknown 10/14/2024 11:03 AM CDT 10/14/2024 11:05 AM CDT Yoseph Horowitz MD CHEMISTRY Final R esult [facility] [address] [place] [address], * ANTI HCV (06/09/2021 9:39 AM CDT) HEPATITIS C ANTIBODY Non-React kristie Non-React kristie 06/09/2021 10:04 PM CDT [facility] Comment:Antibodies to HCV no t detected; does not exclude the possibility of exposure to HCV. Blood BLOOD SPECIMEN / Unknown Venipuncture / Unknown 06/09/2021 9:39 AM CDT 06/09/2021 9:40 AM CDT Yoseph Horowitz MD SEND OUTS Final R esult [facility] [address] [place] [address], [place] * COLONOSCOPY (01/02/2020 9:32 AM CLAY ROASTER) 01/02/2020 9:32 AM CLAY ROASTER Narrative Transcriptions Felipe Tubbs MD - 01/02/2020 10:18 AM CST Patient Name: Mat Ureña Procedure Date: 01/02/2020 Gender: Male Date of : 1960 Admit Type: Ambulatory Procedure: Colonoscopy Proceduralist: Felipe Tubbs [facility] Indications/Pre-Op Diagnosis: Screening for colorectal malignantneoplasm Medications: Midazolam 5 mg IV, Fentanyl 100 microgramsIV Procedure Description: The patient had risks, benefits and alternatives explained to andgave informed consent. The patient had a stable cardiopulmonary status and judged an adequate candidate for conscious sedation. The colonoscope was passed through the anus and advanced to 7 cm into the ileum. The colonoscopy was performed without difficulty. Thepatient tolerated the procedure well. The quality of the bowel preparationwas good. The terminal ileum, ileocecal valve, appendiceal orifice, and rectum were photographed. Complications: No immediate complications. Estimated Blood Loss & Specimen: Estimated blood loss: none. Specimen collected - None Findings: The perianal and digital rectal examinations were normal. A few small-mouthed diverticula were found in the sigmoid colon. The terminal ileum appeared normal. Retroflexion in the right colon was performed. The retroflexed view of the distal rectum and anal verge was normaland showed no anal or rectal abnormalities. Impressions/Post-Op Diagnosis: - Diverticulosis in the sigmoid colon. - The examined portion of the ileum was normal. - No specimens collected. Recommendation: - Discharge patient to home. - Resume previous diet. - Continue present medications. - Repeat colonoscopy in 10 years for surveillance. Moderate Sedation: Moderate (conscious) sedation was administered by the endoscopy nurse and supervised by the endoscopist. The following parameters were monitored: oxygen saturation, heart rate, respiratory rate, adequacyof pulmonary ventilation and reponse to care. Please refer to the patient's medical record flowsheets for moderate sedation details. Moderate (conscious) sedation was administered by the endoscopy nurse and supervised by the endoscopist. The patient's oxygen saturation, heart rate, blood pressure and response to care were monitored. Total physician intraservice time was 17 minutes. Felipe Tubbs, 01/02/2020 10:18:28 AM This report has been signed electronically. Note Initiated On: 01/02/2020 9:32 AM Felipe Tubbs MD PROCEDURE ORD Final Res ult from Last 3 Months or Most Recently Relevant to Health Maintenance Insurance [facility] BLUE CROSS KAKE BLUE MR PB ONLY MEDICARE PART B HB ONLY BLUE CROSS KAKE BLUE HB ONLY Advance Directives * Full Code (Latest Code Status on File) Date Activated Date Inactivated Comments 01/02/2020 8:17 AM 01/02/2020 1:12 PM Question Answer Comments Code Status Discussion: Per Existing Order Care Teams Baking Assistant Relationship Specialty Start Date End Date Yoseph Horowitz MD [address] [facility] [address] [place] [address] PCP - General Family Practice 03/26/19 Lana Mcconnell PA [address] [place] [address] [place] [address] Physician [place] Floors Installer 11/22/24
--- OUTSIDE RECORDS SUMMARY | 2025-01-10 16:26 | XMS_ITS | Continuity of Care Document ---
Author Organization [facility], [facility] Address [address] [facility] [address] [place] [place] [address] Care Team Providers Care Fiberglass Auto Body Repairer Name Role Phone ELSY NORWOOD Primary Care Provider [phone] Assessment Encounter Date Assessment Date Assessment LastModified by Organization Details LastModified Time 12/09/2024 12/09/2024 64yo m with luts , [...] tatic implant; single implant (SURG) 2024 025 [email or web address] 9 [facility], [address] [facility], [address], [place], [address], 12/20/2024 09:58:13 Imaging None recorded. Medication Orders Bactrim DS 800 mg-160 mg tablet 2024 025 [facility], [place], [place], [address] [place], [address], 01/08/2025 12:55:43 Patient TargetsNo targets recorded. Patient InstructionsNo instructions recorded. Reason for Referral None Reported. Problems Name Problem SNOMED Code Status Onset Date Resolution Date Notes Provider Name and Address Organization Details Recorded Time Ureteric stone 71672071 Active 2021 Mark Lewis MD [address] [place] [address],[address], [place], [address], [facility] 2 11:55:18 Parkinson's disease 84661441 Active [facility] 13:39:13 Lower urinary tract symptoms due to benign prostatic hypertrophy 1385013850714 1 Active 2024 Mat Vigil MD [address] [place] [address],[address], [place], [address], [facility] 5 14:42:55 Increased frequency of urination 826873444 Active 2024 Mat Vigil MD [address] [place] [address],[address], [place], [address], [facility] 5 14:42:57 Microscopic hematuria 386915706 Active 2024 Mat Vigil MD [address] [place] [address],[address], [place], [address], [facility] 5 14:43:03 Kidney stone 35448868 Active 2024 Mat Vigil MD [address] [place] [address],[address], [place], [address], [facility] 5 16:18:39 Benign prostatic hyperplasia 368171234 Active 2024 Mat Vigil MD [address] [place] [address],[address], [address], [facility] 5 12:57:27 Problem Notes None recorded. Procedures Surgical History Date Name Laterality Status Provider Name and Address Organization Details Recorded Time 01/02/20 25 Urine Culture completed Charo Edmond [facility] 12/30/2024 14:27:17 01/02/20 25 Urinalysis completed Nasrin Xiong [facility] 01/01/2025 10:50:08 12/10/19 25 Cystoscopy- male completed Mat Vigil MD [address] [facility],[address], [place], [address], [facility] 12/09/2024 16:16:59 02/20/19 21 [...] Updated DateTime 12/09/2024 182.88 cm 27.8 kg/m2 36425.5464 174198 g Not Available Health Note 12/09/2024 14:50:38 Social History Question Answer Notes LastModified by [email or web address] Details LastModified Time Tobacco Smoking Status Former Smoker Not Available Health Note 11/28/2024 21:31:42 Do You Have An Advance Directive? No [email or web address] Information not available 11/28/2024 What Is Your Level Of Caffeine Consumption? Moderate [email or web address] Information not available 11/28/2024 How Much Tobacco Do You Chew? 1/day [email or web address] Information not available 11/28/2024 When Did You Quit Smoking? 16+yearssince lastcigarette [email or web address] Information not available 12/02/2024 Ethnicity Not /Lati no [email or web address] Information not available 12/02/2024 Preferred Language Bhutanese [email or web address] Information not available 12/02/2024 Recreational Drug Use No [email or web address] Information not available 12/02/2024 Do You Have A Medical Power Of Compliance Examiner? Yes [email or web address] Information not available 11/28/2024 What Was The Date Of Your Most Recent Tobacco Screening? 12/09/2024 [email or web address] Information not available 12/05/2024 What Is Your [...] Functional Status Question Answer Note LastModified by [email or web address] ion Details LastModified Time Do you use [...] History Nothing Reported. Medical History Condition Response High Blood Pressure N Kidney Stones Y Depression N Lung Disease N GERD/Acid Reflux N Diabetes N Sexually Transmitted Infection N Bleeding Disorder N Cancer N High Cholesterol Y Heart Disease N Immunizations Vaccine Type Date Status Note Provider Nam e and Address Organization Details Recorded Time SARS-COV-2 (COVID-19) vaccine, UNSPECIFIED 3 completed Not Available Health Note 11/28/2024 21:31:44 zoster live 0 completed Not Available Health Note 11/28/2024 21:31:44 influenza, unspecified formulation 3 completed Not Available Health Note 11/28/2024 21:31:44 Influenza, split virus, trivalent, preservative 6 completed Not Available [facility] 01/01/2025 11:19:38 Hep A, ped/adol, 2 dose 8 completed Not Available [facility] 01/01/2025 11:19:38 Hep B, adult 8 completed Not Available [facility] 01/01/2025 11:19:38 Td (adult), 2 Lf tetanus toxoid, preservative free, adsorbed 5 completed Not Available [facility] 01/01/2025 11:19:38 Hep A, adult 8 completed Not Available [facility] 01/01/2025 11:19:38 Hep B, adult 8 completed Not Available [facility] 01/01/2025 11:19:38 Hep B, adult 8 completed Not Available [facility] 01/01/2025 11:19:38 Influenza, split virus, trivalent, preservative 8 completed Not Available [facility] 01/01/2025 11:19:38 Influenza, split virus, trivalent, preservative 9 completed Not Available [facility] 01/01/2025 11:19:38 influenza, unspecified formulation 0 completed Not Available [facility] 01/01/2025 11:19:38 Influenza, split virus, trivalent, preservative 1 completed Not Available [facility] 01/01/2025 11:19:38 Influenza, split virus, trivalent, preservative 2 completed Not Available [facility] 01/01/2025 11:19:38 Influenza, split virus, trivalent, preservative 2 completed Not Available [facility] 01/01/2025 11:19:38 measles 7 completed Not Available [facility] 01/01/2025 11:19:38 Influenza, split virus, trivalent, preservative 3 completed Not Available [facility] 01/01/2025 11:19:38 influenza, unspecified formulation 4 completed Not Available [facility] 01/01/2025 11:19:38 Influenza, split virus, quadrivalent, PF 6 completed Not Available [facility] 01/01/2025 11:19:38 Td (adult), 2 Lf tetanus toxoid, preservative free, adsorbed 6 completed Not Available [facility] 01/01/2025 11:19:38 Influenza, MDCK, quadrivalent, PF 7 completed Not Available [facility] 01/01/2025 11:19:38 Influenza, split virus, quadrivalent, PF 8 completed Not Available [facility] 01/01/2025 11:19:38 Influenza, split virus, quadrivalent, PF 9 completed Not Available [facility] 01/01/2025 11:19:38 zoster recombinant 0 completed Not Available [facility] 01/01/2025 11:19:38 zoster recombinant 0 completed Not Available [facility] 01/01/2025 11:19:38 Influenza, split virus, quadrivalent, PF 0 completed Not Available [facility] 01/01/2025 11:19:38 COVID-19, mRNA, LNP-S, PF, 30 mcg/0.3 mL dose 1 completed Not Available [facility] 01/01/2025 11:19:38 COVID-19, mRNA, LNP-S, PF, 30 mcg/0.3 mL dose 1 completed Not Available [facility] 01/01/2025 11:19:38 Influenza, split virus, quadrivalent, PF 1 completed Not Available [facility] 01/01/2025 11:19:38 COVID-19, mRNA, LNP-S, PF, 30 mcg/0.3 mL dose 1 completed Not Available [facility] 01/01/2025 11:19:38 COVID-19, mRNA, LNP-S, PF, 100 mcg/0.5mL dose or 50 mcg/0.25mL dose 2 completed Not Available [facility] 01/01/2025 11:19:38 COVID-19, mRNA, LNP-S, bivalent, PF, 30 mcg/0.3 mL dose 2 completed Not Available [facility] 01/01/2025 11:19:38 Influenza, MDCK, quadrivalent, PF 2 completed Not Available [facility] 01/01/2025 11:19:38 Influenza, split virus, quadrivalent, PF 3 completed Not Available [facility] 01/01/2025 11:19:38 COVID-19, mRNA, LNP-S, PF, vick-sucrose, 30 mcg/0.3 mL 4 completed Not Available [facility] 01/01/2025 11:19:38 Pneumococcal conjugate PCV20, polysaccharide LIT997 conjugate, adjuvant, PF 4 completed Not Available [facility] 01/01/2025 11:19:38 COVID-19, mRNA, LNP-S, PF, vick-sucrose, 30 mcg/0.3 mL 4 completed Not Available [facility] 01/01/2025 11:19:38 Influenza, adjuvanted, trivalent, PF 4 completed Not Available [facility] 01/01/2025 11:19:38 Influenza, adjuvanted, trivalent, PF 5 completed Not Available [facility] 01/01/2025 11:19:38 COVID-19, mRNA, LNP-S, PF, 50 mcg/0.5 mL 5 completed Not Available [facility] 01/01/2025 11:19:38 Past Encounters Encounter ID Performer Location Encounter Start Date Encounter Closed Date Diagnosis/Indication Diagnosis SNOMED-CT Code Diagnosis ICD10 Code Diagnosis IMO Codes Diagnosis Note [id number] MD Xiomy Pate an [facility] [address] [address] 12/02/2024 13:56:34 12/02/2024 14:48:25 Lower urinary tract symptoms due to benign prostatic hypertrophy 6682924130 9101 N40.1 [id number] - bothered by his frequency and urgency q1h- likely related to chronic BPH +/ - constipati on- on flomax, tolerating w/o s/e- offered finasterid e, not interested - will eval his bladder and prostate on cysto, may be good urolift candidate- advised to minimize constipati on Microscopic hematuria 19 1568670 R31.29 549281 We discussed the current guidelines as outlined by the [employer] regarding the evaluation of patients at risk for urothelial cell carcinoma. Given they are high risk, it is recommende d that they proceed with local cystoscopy and contrast enhanced triphasic upper tract imaging.-R TC for cysto Kidney stone 24392597 N2 0.0 13945 - ~1.1cm of left side non obstructin g stones- plan for surveillan ce- check KUB + US in 12mo [id number] MD Xiomy Pate an [address] [facility] [address] [address] 12/09/2024 14:50:16 12/09/2024 16:23:05 Lower urinary tract symptoms due to benign prostatic hypertrophy 7309281970 9101 N40.1 30656402 - cysto today with bilateral obstructin g [...] in this I would referred him to interventi onal radiology for considerat ion and he [...] botox in the future Microscopic hematuria 19 0009305 R31.29 967526 -CTU showing few small stones, will survel-cys to negative for bladder cause Kidney stone 36368486 N2 0.0 62751 - ~1.1cm of left side non obstructin g stones- plan for surveillan ce- check KUB + US in 12mo Health Concerns Section Related Observation LastModified by Organization Detai ls LastModified Time None Recorded Concern Status LastModified by Organization Details LastModified Time None Recorded Payers Encounter Date Sequence Insurance Name Policy Number Policy Ivy Covered Member ID Ivy Member ID Guarantor Name 12/09/2024 1 [facility] [place] - MEDICARE COST [id number] Mat Ureña [id number] Mat Ureña Notes Date Note Type Note Provider Name and Address Organization Details Recorded Time 12/09/2024 text/html 64yo m here for evaluation of luts, microhematuria LUTS - storage and voiding sxs. pvr 30. has parkinsons. bothered. on flomax, max dose. vol 40cc hematuria - microheme, CTU w/ stones no masses. no gross hematuria Mat Vigil MD [address] [facility],[address], [place], [address], [facility] 12/09/2024 16:19:57
--- OUTSIDE RECORDS SUMMARY | 2025-01-10 16:26 | XMS_ITS | Clinical Summary ---
Author Organization [facility] Address [address] [address] Care Team Providers Care Data Migration Consultant Name Role Phone Carly Connelly MD Primary Care Provider Source Comments You are receiving this document as you are listed as the primary care provider,follow-up provider, or the patient has been referred to you for consultation.This is in compliance with the Medicare and[facility] EHR Incentive Program,which states Providers who transition their patient to another setting of careor provider of care or refers their patient to another provider of care shouldprovide summary care record for each transition of care or referral. [facility] Allergies No known active allergies Medications tamsulosin (FLOMAX) 0.4 MG CAPS capsule Take 1 Capsule (0.4 mg) by mouth daily. 3 Active Melatonin 10 MG TABS 1 Tablet (10 mg) daily at bedtime. Active pregabalin (LYRICA) 25 MG capsule Take 1-2 Capsules (25-50 mg) by mouth daily at bedtime. 3 Active carbidopa-levod opa (SINEMETCR) 25-100 MG controlled release tablet Take 2 Tablets by mouth three times a day. 540 Tablet 3 5 12/24/19 26 Active carbidopa-levod opa (SINEMETCR) 25-100 MG controlled release tablet Take 2 Tablets by mouth three times a day. 540 Tablet 3 5 12/24/19 25 Discontinu ed(*Med change OR same med OR reorder, new dose/direc tions) Active Problems Problem Noted Date Diagnosed Date Orthostatic hypotension 06/19/2024 Parkinson's disease 04/24/2023 Encounters Date Type Department Care Team Description 12/23/2024 1:00 PM AIRPLANE FLIGHT ATTENDANT Office Visit [facility] [address] [place] [address] Teofilo Ackerman MD Parkinson's disease, unspecified whether dyskinesia present, unspecified whether manifestations fluctuate (HRC) (Primary Dx); Orthostatic hypotension from Last 3 Months Family History Medical History Relation Name Comments Tremor Mother Tremor Brother Relation Name Status Comments Mother Brother Social History Tobacco Use Types Packs/Day Years Used Date Smoking Tobacco: Never Tobacco Cessation:Counseling Given: Not Answered Alcohol Use Standard Drinks/Week Comments Yes 0 (1 standard drink = 0.6 oz pur e alcohol) Sex and Gender Information Value Date Recorded Sex Assigned at Not on file Legal Sex Male 4:28 AM CDT Gender Identity Not on file Sexual Orientation Not on file Last Filed Vital Signs Vital Sign Reading Time Taken Comments Blood Pressure 103/63 12/23/2024 1:05 PM AIRPLANE FLIGHT ATTENDANT Pulse 73 12/23/2024 1:05 PM AIRPLANE FLIGHT ATTENDANT Temperature - - Respiratory Rate - - Oxygen Saturation - - Inhaled Oxygen Concentration - - Weight 94.8 kg (209 lb) 12/23/2024 1:02 PM AIRPLANE FLIGHT ATTENDANT s hoes on Height - - Body Mass Index - - Plan of Treatment Upcoming Encounters Date Type Department Care Team (Late st Contact Info) Description 01/13/2025 2:00 PM AIRPLANE FLIGHT ATTENDANT Appointment [facility] [address] [place] [address] Maria Isabel Lerma, PIPELINE EXECUTIVE [address] [place], [place] [address] 06/27/2025 9:50 AM CDT Appointment Neurology at [address] [facility] [place] [phone] Teofilo Ackerman MD [address] [facility] [address] [place] [phone] Health Maintenance Due Date Last Done Comments Colon Cancer Screening Plan Due 1960 Hep C Screening (Preventive Services) 1960 Medicare Annual Wellness Visit 1960 DTaP/Tdap/Td Vaccine (1 - Tdap) 1977 Cholesterol 1993 COVID-19 Vaccine ( season) 2024 12/06/2023, 03/02/2023, 10/28/2021, Additional history exists Influenza Vaccine (#1) 2024 , 12/30/2022, 10/28/2021, Additional history exists PSA Screening Discussion 10/14/2025 10/14/2024, 07/22 RSV Vaccine (1 - 1-dose 75+ series) 2033 HepA Vaccine Aged Out 10/25/2007, 04/19/2007 No lo nger eligible based on patient's age to complete this topic Zoster/Shingles Vaccine Completed 07/31/2019, 03/26 Pneumococcal Vaccine 50+ Yrs Completed 08/14/2023 HepB Vaccine Aged Out No longer eligi ble based on patient's age to complete this topic Hib Vaccine Aged Out No longer eligi ble based on patient's age to complete this topic IPV (Polio) Vaccine Aged Out No longe r eligible based on patient's age to complete this topic MCV4 Vaccine Aged Out No longer eligi ble based on patient's age to complete this topic Meningococcal B Vaccine Aged Out No l onger eligible based on patient's age to complete this topic Insurance MEDICARE MANAGED CARE [employer] [place] [id number] Care Teams Data Migration Consultant Relationship Specialty Start Date End Date Carly Connelly MD [address] [facility] [address] [place] [phone] PCP - General 05/24/10
[2025-01-10 16:31] VITALS: BP 132/75; PULSE 83; RESP 18; TEMP 36.4; O2SAT 98
--- NOTE | 2025-01-10 16:48 | ED.MALEGU ---
HPI - Male Genitourinary General Time Seen by Provider: 16:48 Date Seen: 01/10/25 Chief complaint: Urogenital Problems, Male Stated complaint: Blocked catheter Time Seen by Provider: 01/10/25 16:48 Source: patient Mode of arrival: ambulatory Limitations: no limitations History of Present Illness HPI Narrative: 59-year-old male who presents today after having a uro lift done by [facility], catheter in place. He had little bit of leakage around the catheter on the way home and increased the cage in come to the emergency room. He does have blood in the catheter. Denies abdominal or flank pain. Not on blood thinners. Related Data Home Medications ?Medication ?Instructions ?Recorded ?Confirmed carbidopa ER 25 mg-levodopa 100 mg 2 tab PO 3XD 01/10/25 01/10/25 tablet,extended release ketorolac 10 mg tablet 10 mg PO Q6-8H PRN 01/10/25 01/10/25 methylprednisolone 4 mg tablets in 0 mg PO DIRECTED 01/10/25 01/10/25 a dose pack oxybutynin chloride 5 mg 5 mg PO DAILY PRN 01/10/25 01/10/25 tablet,extended release 24 hr pregabalin 25 mg capsule 25 mg PO QPM 01/10/25 01/10/25 tamsulosin 0.4 mg capsule PO 01/10/25 Allergies Allergy/AdvReac Type Severity Reaction Status Date / Time No Known Drug Allergies Allergy Verified 01/10/25 16:34 Exam Narrative: Exam Narrative: General: Well-developed and well-nourished, no acute distress Head: Atraumatic and normocephalic Eyes: Pupils are equal reactive, extraocular motions intact, conjunctiva clear ENT: External nose and ears are normal, posterior pharynx without erythema or exudate Neck: No midline cervical tenderness, full spontaneous range of motion the neck, trachea midline, no adenopathy Heart: Regular rate and rhythm no murmurs or thrills Lungs: Clear to auscultation bilaterally without wheezes or crackles Abdomen: Soft, nontender, nondistended with active bowel sounds Musculoskeletal: No tenderness, deformity, or edema Neurologic: Awake, alert, and oriented x3, no gross focal neurologic deficits, cranial nerves intact as tested Psych: Mood and affect are appropriate ; Espinosa catheter in place with small amount of urine in the tubing but none in the bag Skin: No rashes Const: Vital Signs, click to edit/add: Vital Signs - 24 hr 01/10/25 16:31 Temperature 97.6 F Pulse Rate [Right Pulse Oximeter] 83 Respiratory Rate 18 Blood Pressure [Ri ght Upper Arm] 132/75 Pulse Oximetry 98 Oxygen Delivery Me thod Room Air Course Course ED Course: Additional records reviewed: Primary care visit December 26 which was preoperative history for cystoscopy, ureteroscopy, and ureteral stent placement which is not procedure the patient had Additional history from: Spouse Care impacted by: Parkinson's disease, BPH Testing considered but not performed: See ED course Patient presents today with concern for obstructed urinary catheter which was placed today after urologic procedure. Patient is urinating around the catheter and is not having any symptoms of retention. Will irrigate for likely clot occlusion of the catheter. If this is unsuccessful, will discuss with Urology as this was placed postoperatively today. Reevaluation(s) Time of Reevaluation #1: 17:37 Reevaluation #1: Catheter irrigated with return of clear urine, no clots dislodged, irrigation fluid returned to catheter bag. This will be emptied will observe in the department for catheter dysfunction or further leakage of urine around the catheter. Time of Reevaluation #2: 18:28 Reevaluation #2: Patient recheck, catheter is draining well with light pink urine and occasional blood clots. Reviewed instructions for flushing the catheter if needed and return to emergency department precautions. Catheter is to be removed on Monday by Urology. Vital Signs Vital signs: Initial Vital Signs Temperature 97.6 F 01/10/25 16:31 Temperature Source Temporal Artery Scan 01/10/25 16:31 Pulse Rate 83 01/10/25 16:31 Pulse Rhythm Regular 01/10/25 16:31 Pulse Strength 3+ Normal 01/10/25 16:31 Respiratory Rate 18 01/10/25 16:31 Blood Pressure 132/75 01/10/25 16:31 Blood Pressure Mean 94 01/10/25 16:31 Blood Pressure Position Standing 01/10/25 16:31 Pulse Oximetry 98 01/10/25 16:31 Oxygen Delivery Method Room Air 01/10/25 16:31 Vital Signs Temperature 97.6 F 01/10/25 16:31 Pulse Rate 83 01/10/25 16:31 Respiratory Rate 18 01/10/25 16:31 Blood Pressure 132/75 01/10/25 16:31 Pulse Oximetry 98 01/10/25 16:31 Oxygen Delivery Method Room Air 01/10/25 16:31 Temperature 97.6 F 01/10/25 16:31 Pulse Rate 83 01/10/25 16:31 Respiratory Rate 18 01/10/25 16:31 Blood Pressure 132/75 01/10/25 16:31 Pulse Oximetry 98 01/10/25 16:31 Oxygen Delivery Method Room Air 01/10/25 16:31 Discharge Plan Discharge Clinical Impression: Urinary catheter dysfunction, Gross hematuria Patient Disposition: Home, Self-Care Condition: Stable Instructions: Espinosa Catheter Placement and Care (ED) Additional Instructions: Irrigate as needed if the catheter is not draining or your leaking around the catheter Return to the emergency department if needed for further catheter care Activity Level: Activity as Tolerated Discharge Diet: Regular Prescriptions: No Action carbidopa-levodopa 25-100 mg tablet extended release 2 tab PO 3XD ketorolac 10 mg tablet 10 mg PO Q6-8H PRN tamsulosin 0.4 mg capsule PO oxybutynin chloride 5 mg tablet extended release 24hr 5 mg PO DAILY PRN methylprednisolone 4 mg tablets,dose pack 0 mg PO DIRECTED pregabalin 25 mg capsule 25 mg PO QPM Follow Up/Referrals: Provider,Not a Local [Primary Care Provider, Family Practice] Stand Alone Forms: MyHealth Info Instructions
[2025-01-10] MEDS: lidocaine HCL 2 % JELLY (TOP) STERILE 6 ML UR (19:20)
[2025-01-10 20:22] VITALS: BP 150/79; PULSE 81; RESP 18; O2SAT 97
== END 2025-01-10 21:10 | disposition home or self-care (01) ==
PROVIDERS: Emergency Provider Family Medicine
DX: T83.098A Other mechanical complication of other urinary catheter, initial encounter (principal); R31.0 Gross hematuria
CPT/HCPCS: 51702; 99283; A9270